=== PATIENT | male | born 1965 | race Caucasian/White ===

== ENCOUNTER 2020-06-07 08:21 | Outpatient (CLI) | payer OTHER, BC, SELFPAY ==
--- NOTE | ~2020-06-07 | US_ITS ---
EXAMINATION: US abdomen complete EXAM DATE: 06/07/2020 09:39 INDICATION: Abnormal blood chemistry. TECHNIQUE: Multiple grayscale and Doppler images of the complete abdomen were obtained (by a technolo gist who performed the scan) and subsequently reviewed. There is no prior study for comparison. FINDINGS: The abdominal aorta is normal in caliber. Visualized portion IVC is patent. The pancreatic head a nd body are normal in appearance. The pancreatic tail is not visualized. There is echogenic liver parenchyma, hepatic steatosis. There are no focal liver lesions identified. There is no evidence of intrahepatic biliary duct dilation. Portal venous flow was seen in the he patopedal, normal direction and has normal Doppler waveform. Common bile duct measures 4 mm, which is normal. The gallbladder wall is normal in thickness, with ex pected amount of distention. No sonographic evidence of pericholecystic fluid. There is no cholelit hiases. Technologist performing exam reports patient did not demonstrate sonographic Gregg's sign. Please note that this sign is less reliable in patients who have received pain medication. Right kidney: There is normal contour and echogenicity. It measures 10.7 x 5.8 x 6.5 centimeters. There are no focal renal lesions identified. There is no hydronephrosis. Left kidney: There is normal contour and echogenicity. It measures 10.1 x 5.2 x 5.4 centimeters. T here are no focal renal lesions identified. There is no hydronephrosis. The spleen measures 10 centimeters and is morphologically normal. IMPRESSION: 1. Hepatic steatosis. Reviewed, dictated and finalized at location A. IMPRESSION: 1. Hepatic steatosis.
== END 2020-06-07 08:22 | disposition home or self-care (01) ==
LOC: ANHIMG 08:23
PROVIDERS: PCP Family Medicine; Visit Provider Physician Assistant Medical
DX: R79.89 Other specified abnormal findings of blood chemistry (principal); K76.0 Fatty (change of) liver, not elsewhere classified
CPT/HCPCS: 76700

== ENCOUNTER → 2021-10-16 01:28 | Outpatient (CLI) | payer BC, SELFPAY ==
[2021-10-17 13:55] LABS: SARS-CoV-2 RNA PCR Negative
== END ==
PROVIDERS: PCP Family Medicine; Visit Provider Physician Assistant Medical
DX: R09.89 Other specified symptoms and signs involving the circulatory and respiratory systems (principal); Z20.822 Contact with and (suspected) exposure to COVID-19
CPT/HCPCS: C9803; U0003; U0005

== ENCOUNTER 2023-03-07 10:02 | Outpatient (CLI) | payer BC, SELFPAY ==
--- NOTE | ~2023-03-07 | XR_ITS ---
AP and lateral views of the right hip Clinical history: Pain Findings: No acute fracture or dislocation is seen. Osseous alignment is anatomic. The right hip join t is preserved. Right SI joint also unremarkable. Soft tissues are unremarkable. Impression: No significant abnormality is seen. Reviewed, dictated and finalized at location . Impression: No significant abnormality is seen.
== END 2023-03-07 10:03 ==
PROVIDERS: PCP Family Medicine; Visit Provider Nurse Practitioner Family
DX: M25.551 Pain in right hip (principal)
CPT/HCPCS: 73502

== ENCOUNTER 2023-04-20 20:00 | Emergency (ER) | payer BC, SELFPAY ==
--- NOTE | ~2023-04-20 | XR_ITS ---
EXAM: XR tibia fibula LT 2V DATE: 04/20/2023 20:44 HISTORY: Calf muscular strain/sprain . COMPARISON: None available. FINDINGS: Normal mineralization. No fracture or dislocation. No lytic or blastic lesion. Mild knee o steoarthritis. Moderate ankle osteoarthritis quadriceps, patellar, Achilles, and plantar enthesopathy . No erosion or periosteal change. Vascular calcifications. The Achilles tendon is grossly intact. IMPRESSION: No acute osseous finding. The Achilles tendon appears to be grossly intact, noting that r adiography is not sensitive for partial tendon tears. Reviewed, dictated and finalized at location K. IMPRESSION: No acute osseous finding. The Achilles tendon appears to be grossly intact, noting that radiography is not sensitive for partial tendon tears.
[2023-04-20 20:12] VITALS: BP 142/84; PULSE 91; RESP 18; TEMP 36.9; O2SAT 99
--- NOTE | 2023-04-20 20:32 | ED.LOWEXIN ---
HPI - Extremity Injury (Lower) General Chief Complaint: Extremity Injury, Lower Stated Complaint: left leg injury Time Seen by Provider: 04/20/23 20:23 Source: patient Mode of arrival: ambulatory Limitations: no limitations History of Present Illness HPI Narrative: 57 years old white male presents with pain at the left calf muscles started immediately while trying to push a truck forward while wearing the boot. Patient felt quivery feeling at the calf muscles then stopped immediately. He denies other injuries. Pain worse with walking, better if he sits or keep his leg elevated. Related Data Allergies Allergy/AdvReac Type Severity Reaction Status Date / Time No Known Allergies Allergy Verified 04/20/23 20:51 Review of Systems Review of Systems: All systems reviewed & are unremarkable except as noted in HPI and below PMFSH Past Medical History Medical History BMI 29.0-29.9,adult BMI 30.0-30.9,adult Exposure to COVID-19 virus Family History Family History Sibling Hypertension Mother Family history of heart disease in male family member before age 55 Father Carcinoma of colon Social History Social History Smoking status: Never smoker Second hand tobacco smoke exposure: Yes Alcohol intake: never Substance use: never Substance use type: does not use Living arrangements: with family Occupation/Education: occupation 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 Gender identity (if verbalized by the patient): Male Exam Narrative: General appearance: Well-developed, well-nourished Skin: Normal color Head: Normocephalic, nontraumatic Chest and respiratory: Airway patent, no respiratory distress, no accessory muscle use Heart: Regular rate/rhythm Vascular: Normal peripheral pulses, normal capillary refill. Musculoskeletal: Mild diffuse tenderness at the left calf muscles, slightly swollen compared to the other leg. Negative Leone test, no tenderness at the Achilles tendon. No bruises Neurologic: Alert and oriented ?3, SODA CLERK is normal as tested, no gross motor deficit Course Reevaluation(s) Reevaluation #1: Feeling much better after ibuprofen and [place] orally. Date: 04/20/23 Time: 21:21 Vital Signs Vital signs: Vital Signs Temperature 36.9 C 04/20/23 20:12 Pulse Rate 91 04/20/23 20:12 Respiratory Rate 18 04/20/23 20:12 Blood Pressure 142/84 H 04/20/23 20:12 Pulse Oximetry 99 04/20/23 20:12 Oxygen Delivery Room Air 04/20/23 20:12 Temperature 36.9 C 04/20/23 20:12 Pulse Rate 91 04/20/23 20:12 Respiratory Rate 18 04/20/23 20:12 Blood Pressure 142/84 H 04/20/23 20:12 Pulse Oximetry 99 04/20/23 20:12 Oxygen Delivery Room Air 04/20/23 20:12 MDM - Extremity Injury (Lower) MDM Narrative Medical decision making narrative: Patient presents with pain at the calf muscle of the left lower leg, muscular strain/sprain is my concern. X-ray ordered to rule out the possibility of avulsion fracture. Leone test is negative, Achilles tendon exam showed no signs of tears. X-ray left tib-fib showed no acute abnormality. Patient will be discharged on crutches, anti-inflammatory medicine and Tylenol. To follow-up with orthopedic as needed. Differential Diagnosis Differential diagnosis: Likely other (Muscular strain/sprain, Achilles tendon injury) Imaging Data Radiologist's impression: Impressions Tibia/Fibula X-Ray 04/20/23 21:08 IMPRESSION: No acute osseous finding. [facility]
[2023-04-20] MEDS: HYDROcodone/acetaminophen (*CRX) 5-325 MG TABLET 1 TAB PO (20:50)
[2023-04-20] MEDS: IBUPROFEN 600 MG TABLET PO (20:51)
== END 2023-04-20 21:27 | disposition home or self-care (01) ==
PROVIDERS: Emergency Provider Emergency Medicine; PCP Family Medicine
DX: S86.912A Strain of unspecified muscle(s) and tendon(s) at lower leg level, left leg, initial encounter (principal); X50.0XXA Overexertion from strenuous movement or load, initial encounter
CPT/HCPCS: 73590; 99283; A9270

== ENCOUNTER 2023-10-15 09:33 | Outpatient (CLI) | payer BC, SELFPAY ==
[2023-10-28 17:29] VITALS: BMI 31.1
--- NOTE | 2023-10-28 17:29 | WPDHOMESLEEP ---
Sleep Study - Home Unattended Date of Study: 10/15/23 Ordering Provider: Hans Raphael MD Interpreting Provider: Annie Pacheco DO Home Sleep Study Type: Watch PAT Height: 1.73 m Weight: 92.986 kg Body Mass Index: 31.1 Neck Circumference (inches): 16.5 [place]: 10 Reason for Sleep Study Daytime hypersomnia Sleep History The patient's sleep intake paperwork was not completed and included in the chart. [facility] Past Medical History Medical History BMI 29.0-29.9,adult BMI 30.0-30.9,adult Bronchitis Cough Elevated ALT measurement Elevated fasting glucose Elevated hemoglobin A1c Exposure to COVID-19 virus Fatigue History of fatty infiltration of liver Screening for diabetes mellitus Screening for hyperlipidemia Snoring Umbilical hernia Vitamin D deficiency Surgical History Surgical History Hx of appendectomy Family History Family History Sibling Hypertension Diabetes mellitus Mother Family history of heart disease in male family member before age 55 Father Carcinoma of colon , Onset Age: 82 covid-19 Social History Social History Smoking status: Never smoker Second hand tobacco smoke exposure: Yes Alcohol intake: never Substance use: never Substance use type: does not use Lack of Transportation: No Lack of Food: Never True Current Housing: I Have Housing Concerned About Future Housing: No Difficulty Paying Gas/Electric Bills: No Difficulty Paying for Meds: No Currently Unemployed: No Education: High School Diploma/GED Difficulty w/ Childcare or Family Care: No Living arrangements: with family Occupation/Education: occupation 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 Gender identity (if verbalized by the patient): Male Medications Home Medications Medication Instructions Recorded Confirmed Type metoprolol succinate 50 mg 50 mg PO DAILY #90 tabs 02/13/23 03/07/23 Rx tablet,extended release 24 hr triamcinolone acetonide 0.1 % 1 applic topical BID #30 grams 03/07/23 03/07/23 Rx topical cream lisinopril 5 mg tablet 5 mg PO DAILY #90 tabs 05/22/23 Rx cholecalciferol (vitamin D3) 125 125 mcg PO DAILY #30 tabs 10/01/23 Rx mcg (5,000 unit) tablet amoxicillin 875 mg-potassium 1 tablet PO BID #20 tabs 10/15/23 Rx clavulanate 125 mg tablet Sleep Procedure The sleep study was completed using WatchPAT a technically adequate device with seven channels: peripheral arterial tone, actigraphy, body position, snore, respiratory movement, pulse oximetry, sleep staging, and heart rate. Prior to using the device, the patient received verbal and written instructions for its application and was provided with the help desk phone number for additional telephonic instruction with 24-hour availability of qualified personnel to answer questions. The study was scored using [facility] guidelines. Sleep Architecture The patient had a total recording time of 7 hours 31 minutes and a total sleep time of 5 hours 55 minutes. The sleep efficiency was 78.72%. The sleep latency was 20 minutes and the REM latency was 164 minutes. The patient had 10 awakenings. The patient spent 71.56% of total sleep time in light sleep, 13.80% of total sleep time in deep sleep and 14.64% of total sleep time in REM sleep. The patient spent 65.5 minutes, 18.4% of total sleep time in the supine position. Respiratory Analysis The patient had an overall AHI of 1.4 and a central apnea index of 0.3. The REM AHI was 2.3. [place] Morales respirations were not seen. Oximetry Data The patient had an average oxygen saturation of 95% with a minimum of 90% and a maximum of 99%. The patient had 9 desaturations that were 4% or greater, resu
== END 2023-10-17 07:30 | disposition home or self-care (01) ==
LOC: ANHCSM 09:51
PROVIDERS: PCP Family Medicine; Visit Provider Family Medicine
DX: G47.10 Hypersomnia, unspecified (principal); R06.83 Snoring
CPT/HCPCS: 95800

== ENCOUNTER → 2023-12-17 09:47 | Outpatient (CLI) | payer BC, SELFPAY ==
--- NOTE | ~2023-12-17 | XR_ITS ---
EXAMINATION: XR chest 2V DATE: 12/17/2023 09:58 INDICATION: Cough. TECHNIQUE: Frontal and lateral views of the chest were obtained on 3 radiographs. COMPARISON: None. FINDINGS: There is no pneumonia, pleural effusion, or pneumothorax. The heart size is normal. IMPRESSION: 1. No acute cardiopulmonary disease. Reviewed, dictated and finalized at location E. [employer]
== END ==
PROVIDERS: PCP Family Medicine; Visit Provider Nurse Practitioner Family
DX: R05.9 Cough, unspecified (principal)
CPT/HCPCS: 71046

== ENCOUNTER 2024-04-06 13:24 | Outpatient (CLI) | payer BC, SELFPAY ==
--- NOTE | ~2024-04-06 | XR_ITS ---
EXAMINATION: XR knee RT 3V DATE: 04/06/2024 13:56 INDICATION: Anterior right knee pain and swelling TECHNIQUE: Standing AP, lateral and sunrise views of the right knee were obtained COMPARISON: None. FINDINGS: Alignment is normal. No fracture. Joint spaces are normal. No joint effusion/layering lipohemarthros is. Prepatellar soft tissue swelling.. IMPRESSION: 1. Prepatellar soft tissue swelling. No joint effusion or osseous abnormality. Reviewed, dictated and finalized at location B.
== END 2024-04-06 13:25 ==
PROVIDERS: PCP Family Medicine; Visit Provider Physician Assistant Medical
DX: M25.561 Pain in right knee (principal); M79.89 Other specified soft tissue disorders
CPT/HCPCS: 73562

== ENCOUNTER 2024-04-21 16:17 | Outpatient (NON) | payer BC, SELFPAY | END 2024-04-21 16:18 | disposition home or self-care (01) | LOC: ANHLAB 16:18 | PROVIDERS: PCP Family Medicine; Visit Provider Nurse Practitioner Family | DX: M25.461 Effusion, right knee (principal) | CPT/HCPCS: 87070; 87075; 87205 ==

== ENCOUNTER 2024-06-08 14:00 | Outpatient (NON) | payer BC, SELFPAY ==
[2024-06-08 15:04] LABS: Color Synovial Fluid Red (Colorless); Source Synovial Fluid Synovial fluid
[2024-06-08 15:05] LABS: Appearance Synovial Fluid Bloody (Clear)
[2024-06-08 15:06] LABS: Lymphocytes Synovial Fluid 2 %; Neutrophils Synovial Fluid 98 % (0-25)
[2024-06-08 15:16] LABS: Crystals Synovial Fluid None Seen (None Seen)
== END 2024-06-08 14:01 | disposition home or self-care (01) ==
PROVIDERS: PCP Family Medicine; Visit Provider Nurse Practitioner Family
DX: M70.41 Prepatellar bursitis, right knee (principal)
CPT/HCPCS: 36415; 87070; 87075; 87205; 89051; 89060

== ENCOUNTER 2024-09-29 07:08 | Outpatient (RCR) | payer BC, SELFPAY ==
--- NOTE | 2024-07-10 09:15 | PM.PNORT ---
Progress Note: A&P Assessment and Plan (1) Prepatellar bursitis, right knee: Code(s): M70.41 - Prepatellar bursitis, right knee Status: Acute Assessment and Plan: Updated history, physical exam reviewed with the patient. Interval changes reviewed. Discussed the condition, nature, etiology and course of natural history with the patient. Treatment options including surgical and nonoperative treatment were reviewed. Risks and benefits of each as well as alternatives reviewed. The patient's questions were answered. Conservative treatment ice, compression and elevation. patient presents to [facility] for evaluation of his right knee ulcer status post prepatellar bursa. Evaluation from wound care team in agreement with dressing changes and application of graft to assist with healing. Follow up in 1 week for re-evaluation and possible Re graft. 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 Risks and benefits of each as well as alternatives were reviewed. All of the patient's questions were answered. The risks of surgery reviewed including but not limited to: Neurovascular damage, wound complication, infection, blood clot, pulmonary embolus, stroke, myocardial infarction, and anesthetic risks up to and including . Continued pain and possible dysfunction were explained. Specific risks of the procedure including later recurrence of deformity. No guarantees were offered. If complications occur, the patient understands the need for further treatment, possible further surgery. Patient verbalizes understanding and wishes to proceed. PLAN: Application synthetic graft right knee Subjective Subjective Date/Time Seen: 07/10/24 09:15 Principal diagnosis: Right knee bursitis Interval history: patient presents to [facility] for right knee bursitis with skin necrosis. He has been doing dressing changes. No noted problems in the interim. Review of Systems Constitutional: Constitutional: Denies fever(s) Eyes: Eyes: Denies blurry vision ENT: Reports Normal hearing present Cardiovascular: Cardiovascular: Denies chest pain and Denies dyspnea Respiratory: Respiratory: Denies dyspnea and Denies wheezing Gastrointestinal: Gastrointestinal: Denies abdominal pain Genitourinary: Genitourinary: Denies urinary urgency Musculoskeletal: Musculoskeletal: Reports as per HPI and Denies numbness Integumentary/Breasts: Skin/Breast: Denies changing lesions and Denies sores Neurologic: Reports Normal hearing present, Denies behavioral changes, Denies confusion, Denies numbness and Denies convulsions Psychiatric: Psychiatric: Denies behavioral changes, Denies confusion and Denies hallucinations Endocrine: Endocrine: Denies heat intolerance Hematologic/Lymphatic: Hematologic/Lymphatic: Denies easy bleeding Allergic/Immunologic: Allergic/Immunologic: Denies wheezing Exam Const: General: healthy appearing; No in distress or confusion Orientation/consciousness: oriented to person, oriented to place, oriented to time and No confusion HENMT: Head: normal to inspection, normocephalic and atraumatic Eyes: Conjunctivae: conjunctivae normal Sclera: sclerae normal Neck: Neck: supple and nontender Resp: Effort & Inspection: normal respiratory effort and no audible wheezes Cardio: Rate: regular rate Rhythm: regular rhythm Skin: General skin exam: no rashes or lesions noted Neuro: General: oriented to person, oriented to place, oriented to time and No confusion Extrem: Right upper extremity: normal to inspection Left upper extremity: normal to inspection Right lower extremity: hip/thigh Details: normal ROM; no tenderness, knee Details: abnormal to inspection Details: other ( Open wound anterior tibial tubercle 3 x 3 cm with 4 mm depth. 80% granulation tissue. Mild surrounding erythema. No drainage.), tenderness (anterior and medial joint line ) Location: of the medial joint line (moderate ) and of the pre-patellar area (moderate ), swelling (peripatellar and medial joint ), abnormal ROM (active range of motion -10 degrees extension, 110 degrees flexion) Details: pain with active ROM during Details: in extension and in flexion, knee ligament exam normal Details: anterior drawer test normal, posterior drawer test normal, valgus stress test normal and Zoë?s test normal, knee ligament exam abnormal Details: varus stress test normal (painful medial ) and Willard's Test Details: positive medially and foot Details: normal capillary refill, toes with normal ROM, vascular exam Details: dorsalis pedis pulse present and motor-sensory exam Details: light-touch normal; no tenderness; no edema Left lower extremity: normal to inspection, normal capillary refill and knee Details: normal ROM (Active extension 5, flexion 130) and knee ligament exam normal; no tenderness Psych: Affect: normal affect Office Procedure General Pre-Procedure Pre-procedure care: Consent was obtained, Procedures/risks were explained, Questions were answered, Correct patient identified and Correct side and site confirmed Procedure Procedure Details: right knee wound sterilized with alcohol prep. Application of synthetic skin graft to right knee. Sterile dressing applied. Post Procedure Patient tolerated the procedure well?: Tolerated procedure well Comments: CPT 76993
[2024-07-10 09:32] VITALS: BMI 33.7
--- NOTE | 2024-07-17 09:34 | PM.IMHP ---
H&P: HPI History of Present Illness Date/Time: 07/17/24 09:34 Chief Complaint: Right Knee Tibial Tubercle Bursitis Wound PMFSH Past Medical History Medical History (Updated 07/10/24 @ 09:19 by Vinicius Macedo MD) BMI 31.0-31.9,adult Bronchitis Cellulitis of right leg Cough Effusion of bursa of right knee Elevated ALT measurement Elevated fasting glucose Elevated hemoglobin A1c Encounter for screening for malignant neoplasm of prostate Exposure to COVID-19 virus Fatigue History of fatty infiltration of liver Prepatellar bursitis, right knee Right otitis media Screening for diabetes mellitus Screening for hyperlipidemia Snoring Ulcer of right knee Umbilical hernia Vitamin D deficiency Surgical History Surgical History Hx of appendectomy Family History Family History Sibling Hypertension Diabetes mellitus Mother Family history of heart disease in male family member before age 55 Father Carcinoma of colon , Onset Age: 82 covid-19 Social History Social History Smoking status: Never smoker Second hand tobacco smoke exposure: Yes Alcohol intake: never Substance use: never Substance use type: does not use Lack of Transportation: No Lack of Food: Never True Current Housing: I Have Housing Concerned About Future Housing: No Difficulty Paying Gas/Electric Bills: No Difficulty Paying for Meds: No Currently Unemployed: No Education: High School Diploma/GED Difficulty w/ Childcare or Family Care: No Living arrangements: with family Occupation/Education: occupation 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 Gender identity (if verbalized by the patient): Male Meds Home Medications and Allergies Home Medications Medication Instructions Recorded Confirmed Type metoprolol succinate 50 mg 50 mg PO DAILY #90 tabs 11/23/23 07/10/24 Rx tablet,extended release 24 hr cetirizine 10 mg capsule (Zyrtec) 10 mg PO DAILY PRN allergies 02/18/24 07/10/24 History cholecalciferol (vitamin D3) 125 125 mcg PO DAILY #30 tabs 06/18/24 07/10/24 Rx mcg (5,000 unit) tablet lisinopril 5 mg tablet 5 mg PO DAILY #90 tabs 06/18/24 07/10/24 Rx chlorhexidine gluconate 4 % 1 applic topical ONCE #236 mL 06/26/24 07/10/24 Rx topical liquid (Hibiclens) Allergies Allergy/AdvReac Type Severity Reaction Status Date / Time No Known Allergies Allergy Verified 07/10/24 09:33
--- NOTE | 2024-07-17 14:39 | PM.PNORT ---
Progress Note: A&P Assessment and Plan (1) Prepatellar bursitis, right knee: Code(s): M70.41 - Prepatellar bursitis, right knee Status: Acute Assessment and Plan: Updated history, physical exam reviewed with the patient. Interval changes reviewed. Discussed the condition, nature, etiology and course of natural history with the patient. Treatment options including surgical and nonoperative treatment were reviewed. Risks and benefits of each as well as alternatives reviewed. The patient's questions were answered. Conservative treatment ice, compression and elevation. patient presents to [facility] for evaluation of his right knee ulcer status post prepatellar bursa. Evaluation from wound care team in agreement with dressing changes and application of graft to assist with healing. Follow up in 1 week for re-evaluation and possible Re graft. 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 Risks and benefits of each as well as alternatives were reviewed. All of the patient's questions were answered. The risks of surgery reviewed including but not limited to: Neurovascular damage, wound complication, infection, blood clot, pulmonary embolus, stroke, myocardial infarction, and anesthetic risks up to and including . Continued pain and possible dysfunction were explained. Specific risks of the procedure including later recurrence of deformity. No guarantees were offered. If complications occur, the patient understands the need for further treatment, possible further surgery. Patient verbalizes understanding and wishes to proceed. PLAN: Application synthetic graft right knee Subjective Subjective Date/Time Seen: 07/17/24 14:39 Principal diagnosis: Right knee bursitis Interval history: Patient follows up in the [facility] for right knee bursitis with skin necrosis. He has been doing dressing changes. No noted problems in the interim. Review of Systems Constitutional: Constitutional: Denies fever(s) Eyes: Eyes: Denies blurry vision ENT: Reports Normal hearing present Cardiovascular: Cardiovascular: Denies chest pain and Denies dyspnea Respiratory: Respiratory: Denies dyspnea and Denies wheezing Gastrointestinal: Gastrointestinal: Denies abdominal pain Genitourinary: Genitourinary: Denies urinary urgency Musculoskeletal: Musculoskeletal: Reports as per HPI and Denies numbness Integumentary/Breasts: Skin/Breast: Denies changing lesions and Denies sores Neurologic: Reports Normal hearing present, Denies behavioral changes, Denies confusion, Denies numbness and Denies convulsions Psychiatric: Psychiatric: Denies behavioral changes, Denies confusion and Denies hallucinations Endocrine: Endocrine: Denies heat intolerance Hematologic/Lymphatic: Hematologic/Lymphatic: Denies easy bleeding Allergic/Immunologic: Allergic/Immunologic: Denies wheezing Exam Const: General: healthy appearing; No in distress or confusion Orientation/consciousness: oriented to person, oriented to place, oriented to time and No confusion HENMT: Head: normal to inspection, normocephalic and atraumatic Eyes: Conjunctivae: conjunctivae normal Sclera: sclerae normal Neck: Neck: supple and nontender Resp: Effort & Inspection: normal respiratory effort and no audible wheezes Cardio: Rate: regular rate Rhythm: regular rhythm Skin: General skin exam: no rashes or lesions noted Neuro: General: oriented to person, oriented to place, oriented to time and No confusion Extrem: Right upper extremity: normal to inspection Left upper extremity: normal to inspection Right lower extremity: hip/thigh Details: normal ROM; no tenderness, knee Details: abnormal to inspection Details: other ( Open wound anterior tibial tubercle 3 x 3 cm with 4 mm depth. 80% granulation tissue. Mild surrounding erythema. No drainage.), tenderness (anterior and medial joint line ) Location: of the medial joint line (moderate ) and of the pre-patellar area (moderate ), swelling (peripatellar and medial joint ), abnormal ROM (active range of motion -10 degrees extension, 110 degrees flexion) Details: pain with active ROM during Details: in extension and in flexion, knee ligament exam normal Details: anterior drawer test normal, posterior drawer test normal, valgus stress test normal and Zoë?s test normal, knee ligament exam abnormal Details: varus stress test normal (painful medial ) and Willard's Test Details: positive medially and foot Details: normal capillary refill, toes with normal ROM, vascular exam Details: dorsalis pedis pulse present and motor-sensory exam Details: light-touch normal; no tenderness; no edema Left lower extremity: normal to inspection, normal capillary refill and knee Details: normal ROM (Active extension 5, flexion 130) and knee ligament exam normal; no tenderness Psych: Affect: normal affect
--- NOTE | 2024-07-24 09:06 | P.HP_ITS ---
H&P: HPI History of Present Illness Date/Time: 07/24/24 09:06 Chief Complaint: Right tibial tubercle bursa wound Narrative: Patient follows up in the [facility] for right knee bursitis with skin necrosis. He has been doing dressing changes. No noted problems in the interim. Review of Systems Constitutional: Constitutional: Denies fever(s) Eyes: Eyes: Denies blurry vision ENT: Reports Normal hearing present Cardiovascular: Cardiovascular: Denies chest pain and Denies dyspnea Respiratory: Respiratory: Denies dyspnea and Denies wheezing Gastrointestinal: Gastrointestinal: Denies abdominal pain Genitourinary: Genitourinary: Denies urinary urgency Musculoskeletal: Musculoskeletal: Reports as per HPI and Denies numbness Integumentary/Breasts: Skin/Breast: Denies changing lesions and Denies sores Neurologic: Reports Normal hearing present, Denies behavioral changes, Denies confusion, Denies numbness and Denies convulsions Psychiatric: Psychiatric: Denies behavioral changes, Denies confusion and Denies hallucinations Endocrine: Endocrine: Denies heat intolerance Hematologic/Lymphatic: Hematologic/Lymphatic: Denies easy bleeding Allergic/Immunologic: Allergic/Immunologic: Denies wheezing PMFSH Past Medical History Medical History (Updated 07/10/24 @ 09:19 by Vinicius Macedo MD) BMI 31.0-31.9,adult Bronchitis Cellulitis of right leg Cough Effusion of bursa of right knee Elevated ALT measurement Elevated fasting glucose Elevated hemoglobin A1c Encounter for screening for malignant neoplasm of prostate Exposure to COVID-19 virus Fatigue History of fatty infiltration of liver Prepatellar bursitis, right knee Right otitis media Screening for diabetes mellitus Screening for hyperlipidemia Snoring Ulcer of right knee Umbilical hernia Vitamin D deficiency Surgical History Surgical History Hx of appendectomy Family History Family History Sibling Hypertension Diabetes mellitus Mother Family history of heart disease in male family member before age 55 Father Carcinoma of colon , Onset Age: 82 covid-19 Social History Social History Smoking status: Never smoker Second hand tobacco smoke exposure: Yes Alcohol intake: never Substance use: never Substance use type: does not use Lack of Transportation: No Lack of Food: Never True Current Housing: I Have Housing Concerned About Future Housing: No Difficulty Paying Gas/Electric Bills: No Difficulty Paying for Meds: No Currently Unemployed: No Education: High School Diploma/GED Difficulty w/ Childcare or Family Care: No Living arrangements: with family Occupation/Education: occupation 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 Gender identity (if verbalized by the patient): Male Meds Home Medications and Allergies Home Medications Medication Instructions Recorded Confirmed Type metoprolol succinate 50 mg 50 mg PO DAILY #90 tabs 11/23/23 07/10/24 Rx tablet,extended release 24 hr cetirizine 10 mg capsule (Zyrtec) 10 mg PO DAILY PRN allergies 02/18/24 07/10/24 History cholecalciferol (vitamin D3) 125 125 mcg PO DAILY #30 tabs 06/18/24 07/10/24 Rx mcg (5,000 unit) tablet lisinopril 5 mg tablet 5 mg PO DAILY #90 tabs 06/18/24 07/10/24 Rx chlorhexidine gluconate 4 % 1 applic topical ONCE #236 mL 06/26/24 07/10/24 Rx topical liquid (Hibiclens) Allergies Allergy/AdvReac Type Severity Reaction Status Date / Time No Known Allergies Allergy Verified 07/10/24 09:33 Exam Const: General: healthy appearing; No in distress or confusion Orientation/consciousness: oriented to person, oriented to place, oriented to time and No confusion HENMT: Head: normal to inspection, normocephalic and atraumatic Eyes: Conjunctivae: conjunctivae normal Sclera: sclerae normal Neck: Neck: supple and nontender Resp: Effort & Inspection: normal respiratory effort and no audible wheezes Cardio: Rate: regular rate Rhythm: regular rhythm Skin: General skin exam: no rashes or lesions noted Neuro: General: oriented to person, oriented to place, oriented to time and No confusion Cranial nerves: Yes Normal hearing present Extrem: Right upper extremity: normal to inspection Left upper extremity: normal to inspection Right lower extremity: hip/thigh Details: normal ROM; no tenderness, knee Details: abnormal to inspection Details: other ( Open wound anterior tibial tubercle 3 x 3 cm with 4 mm depth. 80% granulation tissue. Mild surrounding erythema. No drainage.), tenderness (anterior and medial joint line ) Location: of the medial joint line (moderate ) and of the pre-patellar area (moderate ), swelling (peripatellar and medial joint ), abnormal ROM (active range of motion -10 degrees extension, 110 degrees flexion) Details: pain with active ROM during Details: in extension and in flexion, knee ligament exam normal Details: anterior drawer test normal, posterior drawer test normal, valgus stress test normal and Zoë?s test normal, knee ligament exam abnormal Details: varus stress test normal (painful medial ) and Willard's Test Details: positive medially and foot Details: normal capillary refill, toes with normal ROM, vascular exam Details: dorsalis pedis pulse present and motor-sensory exam Details: light-touch normal; no tenderness; no edema Left lower extremity: normal to inspection, normal capillary refill and knee Details: normal ROM (Active extension 5, flexion 130) and knee ligament exam normal; no tenderness Psych: Affect: normal affect Assessment and Plan Assessment and plan (1) Prepatellar bursitis, right knee: Code(s): M70.41 - Prepatellar bursitis, right knee Status: Acute Assessment and Plan: Updated history, physical exam reviewed with the patient. Interval changes reviewed. Discussed the condition, nature, etiology and course of natural history with the patient. Treatment options including surgical and nonoperative treatment were reviewed. Risks and benefits of each as well as alternatives reviewed. The patient's questions were answered. Conservative treatment ice, compression and elevation. Patient returns to [facility] for evaluation of his right knee ulcer status post prepatellar bursa. Evaluation from wound care team in agreement with dressing changes and application of graft to assist with healing. Follow up in 1 week for re-evaluation and possible Re graft. 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 Risks and benefits of each as well as alternatives were reviewed. All of the patient's questions were answered. The risks of surgery reviewed including but not limited to: Neurovascular damage, wound complication, infection, blood clot, pulmonary embolus, stroke, myocardial infarction, and anesthetic risks up to and including . Continued pain and possible dysfunction were explained. Specific risks of the procedure including later recurrence of deformity. No guarantees were offered. If complications occur, the patient understands the need for further treatment, possible further surgery. Patient verbalizes understanding and wishes to proceed. PLAN: Application synthetic graft right knee
--- NOTE | 2024-07-30 14:17 | PCWOUND ---
WOCN NOTE On 07/17/24 Arai BRO applied graft to right knee wound. 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
--- NOTE | 2024-07-31 10:00 | P.HP_ITS ---
H&P: HPI History of Present Illness Date/Time: 07/31/24 10:00 Chief Complaint: Right tibial tubercle bursa wound Narrative: Follow up [facility] for right knee bursitis with skin necrosis. He has been doing Foam dressing changes daily with the Adaptic in place. No noted problems in the interim. States drainage through the foam at each dressing change. Review of Systems Constitutional: Constitutional: Denies fever(s) Eyes: Eyes: Denies blurry vision ENT: Reports Normal hearing present Cardiovascular: Cardiovascular: Denies chest pain and Denies dyspnea Respiratory: Respiratory: Denies dyspnea and Denies wheezing Gastrointestinal: Gastrointestinal: Denies abdominal pain Genitourinary: Genitourinary: Denies urinary urgency Musculoskeletal: Musculoskeletal: Reports as per HPI and Denies numbness Integumentary/Breasts: Skin/Breast: Denies changing lesions and Denies sores Neurologic: Reports Normal hearing present, Denies behavioral changes, Denies confusion, Denies numbness and Denies convulsions Psychiatric: Psychiatric: Denies behavioral changes, Denies confusion and Denies hallucinations Endocrine: Endocrine: Denies heat intolerance Hematologic/Lymphatic: Hematologic/Lymphatic: Denies easy bleeding Allergic/Immunologic: Allergic/Immunologic: Denies wheezing PMFSH Past Medical History Medical History (Updated 07/10/24 @ 09:19 by Vinicius Macedo MD) BMI 31.0-31.9,adult Bronchitis Cellulitis of right leg Cough Effusion of bursa of right knee Elevated ALT measurement Elevated fasting glucose Elevated hemoglobin A1c Encounter for screening for malignant neoplasm of prostate Exposure to COVID-19 virus Fatigue History of fatty infiltration of liver Prepatellar bursitis, right knee Right otitis media Screening for diabetes mellitus Screening for hyperlipidemia Snoring Ulcer of right knee Umbilical hernia Vitamin D deficiency Surgical History Surgical History Hx of appendectomy Family History Family History Sibling Hypertension Diabetes mellitus Mother Family history of heart disease in male family member before age 55 Father Carcinoma of colon , Onset Age: 82 covid-19 Social History Social History Smoking status: Never smoker Second hand tobacco smoke exposure: Yes Alcohol intake: never Substance use: never Substance use type: does not use Lack of Transportation: No Lack of Food: Never True Current Housing: I Have Housing Concerned About Future Housing: No Difficulty Paying Gas/Electric Bills: No Difficulty Paying for Meds: No Currently Unemployed: No Education: High School Diploma/GED Difficulty w/ Childcare or Family Care: No Living arrangements: with family Occupation/Education: occupation 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 Gender identity (if verbalized by the patient): Male Meds Home Medications and Allergies Home Medications Medication Instructions Recorded Confirmed Type metoprolol succinate 50 mg 50 mg PO DAILY #90 tabs 11/23/23 07/10/24 Rx tablet,extended release 24 hr cetirizine 10 mg capsule (Zyrtec) 10 mg PO DAILY PRN allergies 02/18/24 07/10/24 History cholecalciferol (vitamin D3) 125 125 mcg PO DAILY #30 tabs 06/18/24 07/10/24 Rx mcg (5,000 unit) tablet lisinopril 5 mg tablet 5 mg PO DAILY #90 tabs 06/18/24 07/10/24 Rx chlorhexidine gluconate 4 % 1 applic topical ONCE #236 mL 06/26/24 07/10/24 Rx topical liquid (Hibiclens) Allergies Allergy/AdvReac Type Severity Reaction Status Date / Time No Known Allergies Allergy Verified 07/10/24 09:33 Exam Const: General: healthy appearing; No in distress or confusion Orientation/consciousness: oriented to person, oriented to place, oriented to time and No confusion HENMT: Head: normal to inspection, normocephalic and atraumatic Resp: Effort & Inspection: normal respiratory effort and no audible wheezes Cardio: Rate: regular rate Rhythm: regular rhythm Extrem: Right upper extremity: normal to inspection Left upper extremity: normal to inspection Right lower extremity: hip/thigh Details: normal ROM; no tenderness, knee Details: abnormal to inspection, tenderness (anterior and medial joint line ) Location: of the medial joint line (moderate ) and of the pre-patellar area (moderate ), swelling (peripatellar and medial joint ), abnormal ROM (active range of motion -10 degrees extension, 110 degrees flexion) Details: pain with active ROM during Details: in extension and in flexion, knee ligament exam normal Details: anterior drawer test normal, posterior drawer test normal, valgus stress test normal and Zoë?s test normal, knee ligament exam abnormal Details: varus stress test normal (painful medial ), Willard's Test Details: positive medially and other (Open wound anterior tibial tubercle 3.5 x 3 cm with 4 mm depth. 2 cm undermining at the 12 o'clock position. 95% granulation tissue. Mild surrounding erythema. serous drainage noted. 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 Interval changes reviewed. Discussed the condition, nature, etiology and course of natural history with the patient. Treatment options were reviewed. Risks and benefits of each as well as alternatives reviewed. The patient's questions were answered. Patient returns to [facility] for evaluation of his right knee ulcer status post prepatellar bursa. Evaluation from wound care team as well. Discussed standard of care for wound. Mild increase in serous drainage noted. Mild surrounding erythema. Concern for possible bacterial overgrowth. Will start with gentamicin gel and antibiotic foam to decrease bacterial burden. Also to help control drainage. 1 week holiday from grafting. Follow up in 1 week for reassessment. May consider repeat graft at that time. (3) Effusion of bursa of right knee: Code(s): M25.461 - Effusion, right knee Status: Acute
--- NOTE | 2024-07-31 10:27 | P.PNOP_ITS ---
Subjective Subjective Date/Time Seen: 07/31/24 10:27 Principal diagnosis: Right knee bursitis Interval history: Patient follows up in the [facility] for right knee bursitis with skin necrosis. He has been doing dressing changes. No noted problems in the interim. Objective Data Meds/Results Medications: Active Medications Generic Name Dose Route Start Last Admin Trade Name Freq PRN Reason Stop Dose Admin Gentamicin Sulfate 1 applic 07/31/24 09:31 Gentamicin Sulfate 0.1% Oint 15 Gm Tube TOPICAL 10/31/24 23:59 PRN PRN Wound Care
--- NOTE | 2024-07-31 10:28 | PM.IMHP ---
H&P: HPI History of Present Illness Date/Time: 07/31/24 10:28 [facility] Past Medical History Medical History (Updated 07/10/24 @ 09:19 by Vinicius Macedo MD) BMI 31.0-31.9,adult Bronchitis Cellulitis of right leg Cough Effusion of bursa of right knee Elevated ALT measurement Elevated fasting glucose Elevated hemoglobin A1c Encounter for screening for malignant neoplasm of prostate Exposure to COVID-19 virus Fatigue History of fatty infiltration of liver Prepatellar bursitis, right knee Right otitis media Screening for diabetes mellitus Screening for hyperlipidemia Snoring Ulcer of right knee Umbilical hernia Vitamin D deficiency Surgical History Surgical History Hx of appendectomy Family History Family History Sibling Hypertension Diabetes mellitus Mother Family history of heart disease in male family member before age 55 Father Carcinoma of colon , Onset Age: 82 covid-19 Social History Social History Smoking status: Never smoker Second hand tobacco smoke exposure: Yes Alcohol intake: never Substance use: never Substance use type: does not use Lack of Transportation: No Lack of Food: Never True Current Housing: I Have Housing Concerned About Future Housing: No Difficulty Paying Gas/Electric Bills: No Difficulty Paying for Meds: No Currently Unemployed: No Education: High School Diploma/GED Difficulty w/ Childcare or Family Care: No Living arrangements: with family Occupation/Education: occupation 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 Gender identity (if verbalized by the patient): Male Meds Home Medications and Allergies Home Medications Medication Instructions Recorded Confirmed Type metoprolol succinate 50 mg 50 mg PO DAILY #90 tabs 11/23/23 07/10/24 Rx tablet,extended release 24 hr cetirizine 10 mg capsule (Zyrtec) 10 mg PO DAILY PRN allergies 02/18/24 07/10/24 History cholecalciferol (vitamin D3) 125 125 mcg PO DAILY #30 tabs 06/18/24 07/10/24 Rx mcg (5,000 unit) tablet lisinopril 5 mg tablet 5 mg PO DAILY #90 tabs 06/18/24 07/10/24 Rx chlorhexidine gluconate 4 % 1 applic topical ONCE #236 mL 06/26/24 07/10/24 Rx topical liquid (Hibiclens) Allergies Allergy/AdvReac Type Severity Reaction Status Date / Time No Known Allergies Allergy Verified 07/10/24 09:33
--- NOTE | 2024-08-07 09:56 | P.PNOP_ITS ---
Progress Note: A&P Assessment and Plan (1) Prepatellar bursitis, right knee: Code(s): M70.41 - Prepatellar bursitis, right knee Status: Acute Assessment and Plan: patient presents to [facility] for evaluation of his right knee ulcer status post prepatellar bursitis. overall improved with gentamicin ointment and sponge packing with transfer for the wound. Dimensions improved and overall appearance improved. Continue with current wound care. Continue offloading with no direct pressure. Continue daily wash. Follow-up in 1 week for reassessment. 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 Continue with same. Discussed surgical options if worsening or signs of infection. Subjective Subjective Date/Time Seen: 08/07/24 09:56 Principal diagnosis: Right pretibial bursitis Interval history: Patient follows up in the [facility] outpatient [facility] for right knee bursitis with skin necrosis. we held off from grafting at the last visit 1 week ago and started with gentamicin ointment, sponge packing and transfer. No noted problems in the interim. Review of Systems Constitutional: Constitutional: Denies fever(s) Eyes: Eyes: Denies blurry vision ENT: Reports Normal hearing present Cardiovascular: Cardiovascular: Denies chest pain and Denies dyspnea Respiratory: Respiratory: Denies dyspnea and Denies wheezing Gastrointestinal: Gastrointestinal: Denies abdominal pain Genitourinary: Genitourinary: Denies urinary urgency Musculoskeletal: Musculoskeletal: Reports as per HPI and Denies numbness Integumentary/Breasts: Skin/Breast: Denies changing lesions and Denies sores Neurologic: Reports Normal hearing present, Denies behavioral changes, Denies confusion, Denies numbness and Denies convulsions Psychiatric: Psychiatric: Denies behavioral changes, Denies confusion and Denies hallucinations Endocrine: Endocrine: Denies heat intolerance Hematologic/Lymphatic: Hematologic/Lymphatic: Denies easy bleeding Allergic/Immunologic: Allergic/Immunologic: Denies wheezing Exam Const: General: healthy appearing; No in distress or confusion Orientation/consciousness: oriented to person, oriented to place, oriented to time and No confusion HENMT: Head: normal to inspection, normocephalic and atraumatic Resp: Effort & Inspection: normal respiratory effort and no audible wheezes Cardio: Rate: regular rate Rhythm: regular rhythm Extrem: Right upper extremity: normal to inspection Left upper extremity: normal to inspection Right lower extremity: hip/thigh Details: normal ROM; no tenderness, knee Details: abnormal to inspection, tenderness (anterior and medial joint line ) Location: of the medial joint line (moderate ) and of the pre-patellar area (moderate ), swelling (peripatellar and medial joint ), abnormal ROM (active range of motion -10 degrees extension, 110 degrees flexion) Details: pain with active ROM during Details: in extension and in flexion, knee ligament exam normal Details: anterior drawer test normal, posterior drawer test normal, valgus stress test normal and Zoë?s test normal, knee ligament exam abnormal Details: varus stress test normal (painful medial ), Willard's Test Details: positive medially and other (Open wound anterior tibial tubercle 3 x 3 cm with 4 mm depth. 1 cm undermining at the 12 o'clock position. 95% granulation tissue. No surrounding erythema. Mild serous drainage noted. ) and foot Details: normal capillary refill, toes with normal ROM, vascular exam Details: dorsalis pedis pulse present and motor-sensory exam Details: light- touch normal; no tenderness; no edema Left lower extremity: normal to inspection, normal capillary refill and knee Details: normal ROM (Active extension 5, flexion 130) and knee ligament exam normal; no tenderness Psych: Affect: normal affect Objective Data Meds/Results Medications: Active Medications Generic Name Dose Route Start Last Admin Trade Name Freq PRN Reason Stop Dose Admin Gentamicin Sulfate 1 applic 07/31/24 09:31 Gentamicin Sulfate 0.1% Oint 15 Gm Tube TOPICAL 10/31/24 23:59 PRN PRN Wound Care [facility] Date/Time Seen 08/07/24 07:57 Medical History Medical History BMI 31.0-31.9,adult Bronchitis Cellulitis of right leg Cough Effusion of bursa of right knee Elevated ALT measurement Elevated fasting glucose Elevated hemoglobin A1c Encounter for screening for malignant neoplasm of prostate Exposure to COVID-19 virus Fatigue History of fatty infiltration of liver Prepatellar bursitis, right knee Right otitis media Screening for diabetes mellitus Screening for hyperlipidemia Snoring Ulcer of right knee Umbilical hernia Vitamin D deficiency Surgical History Surgical History Hx of appendectomy Family History Family History Sibling Hypertension Diabetes mellitus Mother Family history of heart disease in male family member before age 55 Father Carcinoma of colon , Onset Age: 82 covid-19 Social History Social History Smoking status: Never smoker Second hand tobacco smoke exposure: Yes Alcohol intake: never Substance use: never Substance use type: does not use Lack of Transportation: No Lack of Food: Never True Current Housing: I Have Housing Concerned About Future Housing: No Difficulty Paying Gas/Electric Bills: No Difficulty Paying for Meds: No Currently Unemployed: No Education: High School Diploma/GED Difficulty w/ Childcare or Family Care: No Living arrangements: with family Occupation/Education: occupation 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 Gender identity (if verbalized by the patient): Male Medications Active Medications Generic Name Dose Route Start Last Admin Trade Name Freq PRN Reason Stop Dose Admin Gentamicin Sulfate 1 applic 07/31/24 09:31 Gentamicin Sulfate 0.1% Oint 15 Gm Tube TOPICAL 10/31/24 23:59 PRN PRN Wound Care Allergies Allergies Allergy/AdvReac Type Severity Reaction Status Date / Time No Known Allergies Allergy Verified 07/10/24 09:33
--- NOTE | 2024-08-14 09:23 | P.PNOP_ITS ---
Progress Note: A&P Assessment and Plan (1) Prepatellar bursitis, right knee: Code(s): M70.41 - Prepatellar bursitis, right knee Status: Acute Assessment and Plan: Patient presents to [facility] for evaluation of his right knee ulcer status post prepatellar bursitis. Overall improved with gentamicin ointment and sponge packing with transfer for the wound. May benefit from [employer] grafting. Will authorize. Dimensions improved and overall appearance improved. Continue with current wound care. Continue offloading with no direct pressure. Continue daily wash. Follow-up in 1 week for reassessment. 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 Continue with same. Discussed surgical options if worsening or signs of infection. Subjective Subjective Date/Time Seen: 08/14/24 09:23 Principal diagnosis: Right pretibial bursitis Interval history: Patient follows up in the [facility] outpatient [facility] for right knee bursitis with skin necrosis. We held off from grafting at the last visit 2 weeks ago and started with gentamicin ointment, sponge packing and transfer. No noted problems in the interim. Review of Systems Constitutional: Constitutional: Denies fever(s) Eyes: Eyes: Denies blurry vision ENT: Reports Normal hearing present Cardiovascular: Cardiovascular: Denies chest pain and Denies dyspnea Respiratory: Respiratory: Denies dyspnea and Denies wheezing Gastrointestinal: Gastrointestinal: Denies abdominal pain Genitourinary: Genitourinary: Denies urinary urgency Musculoskeletal: Musculoskeletal: Reports as per HPI and Denies numbness Integumentary/Breasts: Skin/Breast: Denies changing lesions and Denies sores Neurologic: Reports Normal hearing present, Denies behavioral changes, Denies confusion, Denies numbness and Denies convulsions Psychiatric: Psychiatric: Denies behavioral changes, Denies confusion and Denies hallucinations Endocrine: Endocrine: Denies heat intolerance Hematologic/Lymphatic: Hematologic/Lymphatic: Denies easy bleeding Allergic/Immunologic: Allergic/Immunologic: Denies wheezing Exam Const: General: healthy appearing; No in distress or confusion Orientation/consciousness: oriented to person, oriented to place, oriented to time and No confusion HENMT: Head: normal to inspection, normocephalic and atraumatic Resp: Effort & Inspection: normal respiratory effort and no audible wheezes Cardio: Rate: regular rate Rhythm: regular rhythm Extrem: Right upper extremity: normal to inspection Left upper extremity: normal to inspection Right lower extremity: hip/thigh Details: normal ROM; no tenderness, knee Details: abnormal to inspection, tenderness (anterior and medial joint line ) Location: of the medial joint line (moderate ) and of the pre-patellar area (moderate ), swelling (peripatellar and medial joint ), abnormal ROM (active range of motion -10 degrees extension, 110 degrees flexion) Details: pain with active ROM during Details: in extension and in flexion, knee ligament exam normal Details: anterior drawer test normal, posterior drawer test normal, valgus stress test normal and Zoë?s test normal, knee ligament exam abnormal Details: varus stress test normal (painful medial ), Willard's Test Details: positive medially and other (Open wound anterior tibial tubercle3.3x2.2x0.3 cm. 0.4 cm undermining at the 12 o'clock position. 100% granulation tissue. No surrounding erythema. Mild serous drainage noted. ) and foot Details: normal capillary refill, toes with normal ROM, vascular exam Details: dorsalis pedis pulse present and motor-sensory exam Details: light- touch normal; no tenderness; no edema Left lower extremity: normal to inspection, normal capillary refill and knee Details: normal ROM (Active extension 5, flexion 130) and knee ligament exam normal; no tenderness Psych: Affect: normal affect Objective Data Meds/Results Medications: Active Medications Generic Name Dose Route Start Last Admin Trade Name Freq PRN Reason Stop Dose Admin Gentamicin Sulfate 1 applic 07/31/24 09:31 Gentamicin Sulfate 0.1% Oint 15 Gm Tube TOPICAL 10/31/24 23:59 PRN PRN Wound Care
--- NOTE | 2024-08-21 09:01 | PM.IMHP ---
H&P: HPI History of Present Illness Date/Time: 08/21/24 08:31 Chief Complaint: Right tibial tubercle bursa wound Narrative: Follow up [facility] for right knee bursitis with skin necrosis. He has been doing Foam dressing changes daily with transfer and antibiotic ointment. No noted problems in the interim. States drainage through the foam at each dressing change improving. Review of Systems Constitutional: Constitutional: Denies fever(s) Eyes: Eyes: Denies blurry vision ENT: Reports Normal hearing present Cardiovascular: Cardiovascular: Denies chest pain and Denies dyspnea Respiratory: Respiratory: Denies dyspnea and Denies wheezing Gastrointestinal: Gastrointestinal: Denies abdominal pain Genitourinary: Genitourinary: Denies urinary urgency Musculoskeletal: Musculoskeletal: Reports as per HPI and Denies numbness Integumentary/Breasts: Skin/Breast: Denies changing lesions and Denies sores Neurologic: Reports Normal hearing present, Denies behavioral changes, Denies confusion, Denies numbness and Denies convulsions Psychiatric: Psychiatric: Denies behavioral changes, Denies confusion and Denies hallucinations Endocrine: Endocrine: Denies heat intolerance Hematologic/Lymphatic: Hematologic/Lymphatic: Denies easy bleeding Allergic/Immunologic: Allergic/Immunologic: Denies wheezing PMFSH Past Medical History Medical History BMI 31.0-31.9,adult Bronchitis Cellulitis of right leg Cough Effusion of bursa of right knee Elevated ALT measurement Elevated fasting glucose Elevated hemoglobin A1c Encounter for screening for malignant neoplasm of prostate Exposure to COVID-19 virus Fatigue History of fatty infiltration of liver Prepatellar bursitis, right knee Right otitis media Screening for diabetes mellitus Screening for hyperlipidemia Snoring Ulcer of right knee Umbilical hernia Vitamin D deficiency Surgical History Surgical History Hx of appendectomy Family History Family History Sibling Hypertension Diabetes mellitus Mother Family history of heart disease in male family member before age 55 Father Carcinoma of colon , Onset Age: 82 covid-19 Social History Social History Smoking status: Never smoker Second hand tobacco smoke exposure: Yes Alcohol intake: never Substance use: never Substance use type: does not use Lack of Transportation: No Lack of Food: Never True Current Housing: I Have Housing Concerned About Future Housing: No Difficulty Paying Gas/Electric Bills: No Difficulty Paying for Meds: No Currently Unemployed: No Education: High School Diploma/GED Difficulty w/ Childcare or Family Care: No Living arrangements: with family Occupation/Education: occupation 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 Gender identity (if verbalized by the patient): Male Meds Home Medications and Allergies Home Medications Medication Instructions Recorded Confirmed Type metoprolol succinate 50 mg 50 mg PO DAILY #90 tabs 11/23/23 07/10/24 Rx tablet,extended release 24 hr cetirizine 10 mg capsule (Zyrtec) 10 mg PO DAILY PRN allergies 02/18/24 07/10/24 History cholecalciferol (vitamin D3) 125 125 mcg PO DAILY #30 tabs 06/18/24 07/10/24 Rx mcg (5,000 unit) tablet lisinopril 5 mg tablet 5 mg PO DAILY #90 tabs 06/18/24 07/10/24 Rx chlorhexidine gluconate 4 % 1 applic topical ONCE #236 mL 06/26/24 07/10/24 Rx topical liquid (Hibiclens) Allergies Allergy/AdvReac Type Severity Reaction Status Date / Time No Known Allergies Allergy Verified 07/10/24 09:33 Exam Const: General: healthy appearing; No in distress or confusion Orientation/consciousness: oriented to person, oriented to place, oriented to time and No confusion Resp: Effort & Inspection: normal respiratory effort and no audible wheezes Cardio: Rate: regular rate Rhythm: regular rhythm Extrem: Right upper extremity: normal to inspection Left upper extremity: normal to inspection Right lower extremity: hip/thigh Details: normal ROM; no tenderness, knee Details: abnormal to inspection, tenderness (anterior and medial joint line ) Location: of the medial joint line (moderate ) and of the pre-patellar area (moderate ), swelling (peripatellar and medial joint ), abnormal ROM (active range of motion -10 degrees extension, 110 degrees flexion) Details: pain with active ROM during Details: in extension and in flexion, knee ligament exam normal Details: anterior drawer test normal, posterior drawer test normal, valgus stress test normal and Zoë?s test normal, knee ligament exam abnormal Details: varus stress test normal (painful medial ), Willard's Test Details: positive medially and other (Open wound anterior tibial [id number] x0.4 cm. 1.2 cm undermining at the 1 o'clock position. 100% granulation tissue. No surrounding erythema. Mild serous drainage noted. 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 Updated history, physical exam reviewed with the patient. Interval changes reviewed. wound improving with current dressing and treatment regimen. Evaluated with the wound clinic team. Insurance not approved for graft application. Continue with current care with gentamicin ointment, anti microbial foam, transfer with gauze over. Will add Alfreda to try and increase granulation. Overall swelling of the anterior knee improved. No other signs of infection. Follow up in 1 week for reassessment. (3) Effusion of bursa of right knee: Code(s): M25.461 - Effusion, right knee Status: Acute
--- NOTE | 2024-08-28 09:07 | PM.IMHP ---
H&P: HPI History of Present Illness Date/Time: 08/28/24 09:07 Chief Complaint: Right tibial tubercle bursa wound Narrative: Follow up [facility] for right knee bursitis with skin necrosis. He has been doing Foam dressing changes daily with transfer and antibiotic ointment. No noted problems in the interim. States drainage through the foam at each dressing change improving. Review of Systems Constitutional: Constitutional: Denies fever(s) Eyes: Eyes: Denies blurry vision ENT: Reports Normal hearing present Cardiovascular: Cardiovascular: Denies chest pain and Denies dyspnea Respiratory: Respiratory: Denies dyspnea and Denies wheezing Gastrointestinal: Gastrointestinal: Denies abdominal pain Genitourinary: Genitourinary: Denies urinary urgency Musculoskeletal: Musculoskeletal: Reports as per HPI and Denies numbness Integumentary/Breasts: Skin/Breast: Denies changing lesions and Denies sores Neurologic: Reports Normal hearing present, Denies behavioral changes, Denies confusion, Denies numbness and Denies convulsions Psychiatric: Psychiatric: Denies behavioral changes, Denies confusion and Denies hallucinations Endocrine: Endocrine: Denies heat intolerance Hematologic/Lymphatic: Hematologic/Lymphatic: Denies easy bleeding Allergic/Immunologic: Allergic/Immunologic: Denies wheezing PMFSH Past Medical History Medical History BMI 31.0-31.9,adult Bronchitis Cellulitis of right leg Cough Effusion of bursa of right knee Elevated ALT measurement Elevated fasting glucose Elevated hemoglobin A1c Encounter for screening for malignant neoplasm of prostate Exposure to COVID-19 virus Fatigue History of fatty infiltration of liver Prepatellar bursitis, right knee Right otitis media Screening for diabetes mellitus Screening for hyperlipidemia Snoring Ulcer of right knee Umbilical hernia Vitamin D deficiency Surgical History Surgical History Hx of appendectomy Family History Family History Sibling Hypertension Diabetes mellitus Mother Family history of heart disease in male family member before age 55 Father Carcinoma of colon , Onset Age: 82 covid-19 Social History Social History Smoking status: Never smoker Second hand tobacco smoke exposure: Yes Alcohol intake: never Substance use: never Substance use type: does not use Lack of Transportation: No Lack of Food: Never True Current Housing: I Have Housing Concerned About Future Housing: No Difficulty Paying Gas/Electric Bills: No Difficulty Paying for Meds: No Currently Unemployed: No Education: High School Diploma/GED Difficulty w/ Childcare or Family Care: No Living arrangements: with family Occupation/Education: occupation 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 Gender identity (if verbalized by the patient): Male Meds Home Medications and Allergies Home Medications Medication Instructions Recorded Confirmed Type metoprolol succinate 50 mg 50 mg PO DAILY #90 tabs 11/23/23 07/10/24 Rx tablet,extended release 24 hr cetirizine 10 mg capsule (Zyrtec) 10 mg PO DAILY PRN allergies 02/18/24 07/10/24 History cholecalciferol (vitamin D3) 125 125 mcg PO DAILY #30 tabs 06/18/24 07/10/24 Rx mcg (5,000 unit) tablet lisinopril 5 mg tablet 5 mg PO DAILY #90 tabs 06/18/24 07/10/24 Rx chlorhexidine gluconate 4 % 1 applic topical ONCE #236 mL 06/26/24 07/10/24 Rx topical liquid (Hibiclens) Allergies Allergy/AdvReac Type Severity Reaction Status Date / Time No Known Allergies Allergy Verified 07/10/24 09:33 Exam Const: General: healthy appearing; No in distress or confusion Orientation/consciousness: oriented to person, oriented to place, oriented to time and No confusion Resp: Effort & Inspection: normal respiratory effort and no audible wheezes Cardio: Rate: regular rate Rhythm: regular rhythm Extrem: Right upper extremity: normal to inspection Left upper extremity: normal to inspection Right lower extremity: hip/thigh Details: normal ROM; no tenderness, knee Details: abnormal to inspection, tenderness (anterior and medial joint line ) Location: of the medial joint line (moderate ) and of the pre-patellar area (moderate ), swelling (peripatellar and medial joint ), abnormal ROM (active range of motion -10 degrees extension, 110 degrees flexion) Details: pain with active ROM during Details: in extension and in flexion, knee ligament exam normal Details: anterior drawer test normal, posterior drawer test normal, valgus stress test normal and Zoë?s test normal, knee ligament exam abnormal Details: varus stress test normal (painful medial ), Willard's Test Details: positive medially and other (Open wound anterior tibial tubercle 2.5x2.0x0.3 cm undermining at the 1 o'clock position to 0.2 cm. 100% granulation tissue. No surrounding erythema. Mild serous drainage noted. ) and foot Details: normal capillary refill, toes with normal ROM, vascular exam Details: dorsalis pedis pulse present and motor-sensory exam Details: light-touch normal; no tenderness; no edema Left lower extremity: normal to inspection, normal capillary refill and knee Details: normal ROM (Active extension 5, flexion 130) and knee ligament exam normal; no tenderness Assessment and Plan Assessment and plan (1) Prepatellar bursitis, right knee: Code(s): M70.41 - Prepatellar bursitis, right knee Status: Acute Assessment and Plan: Patient returns to [facility] for evaluation of his right knee ulcer status post prepatellar bursa. Updated history, physical exam reviewed with the patient. Interval changes reviewed. wound improving with current dressing and treatment regimen. Evaluated with the wound clinic team. Insurance not approved for graft application. Continue with current care with gentamicin ointment, anti microbial foam, transfer with gauze over. Continue Alfreda for granulation. Overall swelling of the anterior knee improved. No other signs of infection. Follow up in 3 weeks for reassessment. Continue weekly wound checks with [facility] wound care nurses. 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
--- NOTE | 2024-09-18 08:40 | P.HP_ITS ---
H&P: HPI History of Present Illness Date/Time: 09/18/24 08:40 Chief Complaint: Right tibial tubercle bursa wound Narrative: Follow up [facility] for right knee bursitis with skin necrosis. He has been doing Foam dressing changes daily with transfer and antibiotic ointment. No noted problems in the interim. States drainage through the foam at each dressing change improving. Was more active last week. Increased drainage noted. Review of Systems Constitutional: Constitutional: Denies fever(s) Eyes: Eyes: Denies blurry vision ENT: Reports Normal hearing present Cardiovascular: Cardiovascular: Denies chest pain and Denies dyspnea Respiratory: Respiratory: Denies dyspnea and Denies wheezing Gastrointestinal: Gastrointestinal: Denies abdominal pain Genitourinary: Genitourinary: Denies urinary urgency Musculoskeletal: Musculoskeletal: Reports as per HPI and Denies numbness Integumentary/Breasts: Skin/Breast: Denies changing lesions and Denies sores Neurologic: Reports Normal hearing present, Denies behavioral changes, Denies confusion, Denies numbness and Denies convulsions Psychiatric: Psychiatric: Denies behavioral changes, Denies confusion and Denies hallucinations Endocrine: Endocrine: Denies heat intolerance Hematologic/Lymphatic: Hematologic/Lymphatic: Denies easy bleeding Allergic/Immunologic: Allergic/Immunologic: Denies wheezing PMFSH Past Medical History Medical History BMI 31.0-31.9,adult Bronchitis Cellulitis of right leg Cough Effusion of bursa of right knee Elevated ALT measurement Elevated fasting glucose Elevated hemoglobin A1c Encounter for screening for malignant neoplasm of prostate Exposure to COVID-19 virus Fatigue History of fatty infiltration of liver Prepatellar bursitis, right knee Right otitis media Screening for diabetes mellitus Screening for hyperlipidemia Snoring Ulcer of right knee Umbilical hernia Vitamin D deficiency Surgical History Surgical History Hx of appendectomy Family History Family History Sibling Hypertension Diabetes mellitus Mother Family history of heart disease in male family member before age 55 Father Carcinoma of colon , Onset Age: 82 covid-19 Social History Social History Smoking status: Never smoker Second hand tobacco smoke exposure: Yes Alcohol intake: never Substance use: never Substance use type: does not use Lack of Transportation: No Lack of Food: Never True Current Housing: I Have Housing Concerned About Future Housing: No Difficulty Paying Gas/Electric Bills: No Difficulty Paying for Meds: No Currently Unemployed: No Education: High School Diploma/GED Difficulty w/ Childcare or Family Care: No Living arrangements: with family Occupation/Education: occupation 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 Gender identity (if verbalized by the patient): Male Meds Home Medications and Allergies Home Medications Medication Instructions Recorded Confirmed Type metoprolol succinate 50 mg 50 mg PO DAILY #90 tabs 11/23/23 07/10/24 Rx tablet,extended release 24 hr cetirizine 10 mg capsule (Zyrtec) 10 mg PO DAILY PRN allergies 02/18/24 07/10/24 History cholecalciferol (vitamin D3) 125 125 mcg PO DAILY #30 tabs 06/18/24 07/10/24 Rx mcg (5,000 unit) tablet lisinopril 5 mg tablet 5 mg PO DAILY #90 tabs 06/18/24 07/10/24 Rx chlorhexidine gluconate 4 % 1 applic topical ONCE #236 mL 06/26/24 07/10/24 Rx topical liquid (Hibiclens) Allergies Allergy/AdvReac Type Severity Reaction Status Date / Time No Known Allergies Allergy Verified 07/10/24 09:33 Exam Const: General: healthy appearing; No in distress or confusion Orie ntation/consciousness: oriented to person, oriented to place, oriented to time and No confusion Resp: Effort & Inspection: normal respiratory effort and no audible wheezes Cardio: Rate: regular rate Rhythm: regular rhythm Extrem: Right upper extremity: normal to inspection Left upper extremity: normal to inspection Right lower extremity: hip/thigh Details: normal ROM; no tenderness, knee Details: abnormal to inspection, tenderness (anterior and medial joint line ) Location: of the medial joint line (moderate ) and of the pre-patellar area (moderate ), swelling (peripatellar and medial joint ), abnormal ROM (active range of motion -10 degrees extension, 110 degrees flexion) Details: pain with active ROM during Details: in extension and in flexion, knee ligament exam normal Details: anterior drawer test normal, posterior drawer test normal, valgus stress test normal and Zoë?s test normal, knee ligament exam abnormal Details: varus stress test normal (painful medial ), Willard's Test Details: positive medially and other (Open wound anterior tibial tubercle 2.4x1.7x0.3 cm undermining at the 11 o'clock position to 1.5 cm. 95% granulation tissue. No surrounding erythema. Mild serous drainage noted. ) and foot Details: normal capillary refill, toes with normal ROM, vascular exam Details: dorsalis pedis pulse present and motor-sensory exam Details: light- touch normal; no tenderness; no edema Left lower extremity: normal to inspection, normal capillary refill and knee Details: normal ROM (Active extension 5, flexion 130) and knee ligament exam normal; no tenderness Assessment and Plan Assessment and plan (1) Prepatellar bursitis, right knee: Code(s): M70.41 - Prepatellar bursitis, right knee Status: Acute Assessment and Plan: Patient returns to [facility] for evaluation of his right knee ulcer status post prepatellar bursa. Updated history, physical exam reviewed with the patient. Interval changes reviewed. wound stalled in dimensions. Mild serous drainage. Evaluated with the wound clinic team. Insurance not approved for graft application. Wound VAC to assist with granulation and closure, control drainage. Overall swelling of the anterior knee improved. No other signs of infection. Follow up in 5days for reassessment With wound VAC. 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
--- NOTE | 2024-09-29 08:49 | P.HP_ITS ---
H&P: HPI History of Present Illness Date/Time: 09/29/24 08:49 Chief Complaint: Right tibial tubercle bursa wound Narrative: Follow up [facility] for right knee bursitis with skin necrosis. He did well with a 5 day MARIA INES dressing and then transitioned to foam dressing changes daily with transfer and antibiotic ointment. No noted problems in the interim. States drainage through the foam at each dressing change improving. Review of Systems Review of Systems: All systems reviewed & are unremarkable except as noted in HPI and below Constitutional: Constitutional: Denies fever(s) Eyes: Eyes: Denies blurry vision ENT: Reports Normal hearing present Cardiovascular: Cardiovascular: Denies chest pain and Denies dyspnea Respiratory: Respiratory: Denies dyspnea and Denies wheezing Gastrointestinal: Gastrointestinal: Denies abdominal pain Genitourinary: Genitourinary: Denies urinary urgency Musculoskeletal: Musculoskeletal: Reports as per HPI and Denies numbness Integumentary/Breasts: Skin/Breast: Denies changing lesions and Denies sores Neurologic: Reports Normal hearing present, Denies behavioral changes, Denies confusion, Denies numbness and Denies convulsions Psychiatric: Psychiatric: Denies behavioral changes, Denies confusion and Denies hallucinations Endocrine: Endocrine: Denies heat intolerance Hematologic/Lymphatic: Hematologic/Lymphatic: Denies easy bleeding Allergic/Immunologic: Allergic/Immunologic: Denies wheezing PMFSH Past Medical History Medical History Ulcer of right knee Prepatellar bursitis, right knee Cellulitis of right leg Effusion of bursa of right knee Right otitis media BMI 31.0-31.9,adult Bronchitis Elevated ALT measurement Elevated hemoglobin A1c Elevated fasting glucose Vitamin D deficiency Cough Snoring Screening for hyperlipidemia History of fatty infiltration of liver Screening for diabetes mellitus Fatigue Umbilical hernia Encounter for screening for malignant neoplasm of prostate Exposure to COVID-19 virus Surgical History Surgical History Hx of appendectomy Family History Family History Sibling Hypertension Diabetes mellitus Mother Family history of heart disease in male family member before age 55 Father Carcinoma of colon , Onset Age: 82 covid-19 Social History Social History (Reviewed 09/29/24 @ 08:49 by DESIREE Aguirre Smoking status: Never smoker Second hand tobacco smoke exposure: Yes Alcohol intake: never Substance use: never Substance use type: does not use Lack of Transportation: No Lack of Food: Never True Current Housing: I Have Housing Concerned About Future Housing: No Difficulty Paying Gas/Electric Bills: No Difficulty Paying for Meds: No Currently Unemployed: No Education: High School Diploma/GED Difficulty w/ Childcare or Family Care: No Living arrangements: with family Occupation/Education: occupation 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 Gender identity (if verbalized by the patient): Male Meds Home Medications and Allergies Home Medications ?Medication ?Instructions ?Recorded ?Confirmed ?Type metoprolol succinate 50 mg 50 mg PO DAILY #90 tabs 11/23/23 07/10/24 Rx tablet,extended release 24 hr cetirizine 10 mg capsule (Zyrtec) 10 mg PO DAILY PRN allergies 02/18/24 07/10/24 History cholecalciferol (vitamin D3) 125 125 mcg PO DAILY #30 tabs 06/18/24 07/10/24 Rx mcg (5,000 unit) tablet lisinopril 5 mg tablet 5 mg PO DAILY #90 tabs 06/18/24 07/10/24 Rx chlorhexidine gluconate 4 % 1 applic topical ONCE #236 mL 06/26/24 07/10/24 Rx topical liquid (Hibiclens) Allergies Allergy/AdvReac Type Severity Reaction Status Date / Time No Known Allergies Allergy Verified 07/10/24 09:33 Exam Const: General: healthy appearing; No in distress or confusion Orientation/consciousness: oriented to person, oriented to place, oriented to time and No confusion Resp: Effort & Inspection: normal respiratory effort and no audible wheezes Cardio: Rate: regular rate Rhythm: regular rhythm Extrem: Right upper extremity: normal to inspection Left upper extremity: normal to inspection Right lower extremity: hip/thigh Details: normal ROM; no tenderness, knee Details: abnormal to inspection, tenderness (anterior and medial joint line ) Location: of the medial joint line (moderate ) and of the pre-patellar area (moderate ), swelling (peripatellar and medial joint ), abnormal ROM (active range of motion -10 degrees extension, 110 degrees flexion) Details: pain with active ROM during Details: in extension and in flexion, knee ligament exam normal Details: anterior drawer test normal, posterior drawer test normal, valgus stress test normal and Zoë?s test normal, knee ligament exam abnormal Details: varus stress test normal (painful medial ), Willard's Test Details: positive medially and other (Open wound anterior tibial tubercle 2x1x0.3 cm undermining at the 11 o'clock position to 1 cm. 95% granulation tissue. No surrounding erythema. Mild serous drainage noted. ) and foot Detail s: normal capillary refill, toes with normal ROM, vascular exam Details: dorsalis pedis pulse present and motor-sensory exam Details: light-touch normal; no tenderness; no edema Left lower extremity: normal to inspection, normal capillary refill and knee Details: normal ROM (Active extension 5, flexion 130) and knee ligament exam normal; no tenderness Assessment and Plan Assessment and plan (1) Prepatellar bursitis, right knee: Code(s): M70.41 - Prepatellar bursitis, right knee Status: Acute Assessment and Plan: Patient returns to [facility] for evaluation of his right knee ulcer status post prepatellar bursa. Updated history, physical exam reviewed with the patient. Interval changes reviewed. Significant improvement s/p MARIA INES dressing. Insurance not approved for graft application. Repeat MARIA INES wound VAC today. F/u in 1 week for reevaluation with the [facility] wound clinic nurses. 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
== END 2024-10-08 23:59 | disposition home or self-care (01) ==
LOC: ANHWOC 07:08
PROVIDERS: PCP Family Medicine; Visit Provider Nurse Practitioner Family
DX: L97.813 Non-pressure chronic ulcer of other part of right lower leg with necrosis of muscle (principal); M25.461 Effusion, right knee; M70.41 Prepatellar bursitis, right knee; Z48.00 Encounter for change or removal of nonsurgical wound dressing
CPT/HCPCS: 97607; 99213; 99214; A9270; G0463

== ENCOUNTER 2024-12-25 07:08 | Outpatient (RCR) | payer BC, SELFPAY ==
[2024-10-09 00:03] VITALS: BMI 33.7
--- NOTE | 2024-10-16 13:08 | PM.IMHP ---
H&P: HPI History of Present Illness Date/Time: 10/16/24 8:30 Chief Complaint: Right tibial tubercle bursa wound Narrative: Follow up [facility] for right knee bursitis with skin necrosis. He did well with a 5 day MARIA INES dressing and then transitioned to foam dressing changes daily with transfer and antibiotic ointment. He has been in [place] the past week. No noted problems in the interim. States drainage through the foam at each dressing change improving. [facility] Past Medical History Medical History Ulcer of right knee Prepatellar bursitis, right knee Cellulitis of right leg Effusion of bursa of right knee Right otitis media BMI 31.0-31.9,adult Bronchitis Elevated ALT measurement Elevated hemoglobin A1c Elevated fasting glucose Vitamin D deficiency Cough Snoring Screening for hyperlipidemia History of fatty infiltration of liver Screening for diabetes mellitus Fatigue Umbilical hernia Encounter for screening for malignant neoplasm of prostate Exposure to COVID-19 virus Surgical History Surgical History Hx of appendectomy Family History Family History Sibling Hypertension Diabetes mellitus Mother Family history of heart disease in male family member before age 55 Father Carcinoma of colon , Onset Age: 82 covid-19 Social History Social History Smoking status: Never smoker Second hand tobacco smoke exposure: Yes Alcohol intake: never Substance use: never Substance use type: does not use Lack of Transportation: No Lack of Food: Never True Current Housing: I Have Housing Concerned About Future Housing: No Difficulty Paying Gas/Electric Bills: No Difficulty Paying for Meds: No Currently Unemployed: No Education: High School Diploma/GED Difficulty w/ Childcare or Family Care: No Living arrangements: with family Occupation/Education: occupation 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 Gender identity (if verbalized by the patient): Male Meds Home Medications and Allergies Home Medications ?Medication ?Instructions ?Recorded ?Confirmed ?Type metoprolol succinate 50 mg 50 mg PO DAILY #90 tabs 11/23/23 07/10/24 Rx tablet,extended release 24 hr cetirizine 10 mg capsule (Zyrtec) 10 mg PO DAILY PRN allergies 02/18/24 07/10/24 History cholecalciferol (vitamin D3) 125 125 mcg PO DAILY #30 tabs 06/18/24 07/10/24 Rx mcg (5,000 unit) tablet lisinopril 5 mg tablet 5 mg PO DAILY #90 tabs 06/18/24 07/10/24 Rx chlorhexidine gluconate 4 % 1 applic topical ONCE #236 mL 06/26/24 07/10/24 Rx topical liquid (Hibiclens) Allergies Allergy/AdvReac Type Severity Reaction Status Date / Time No Known Allergies Allergy Verified 07/10/24 09:33 Exam Extrem: Right upper extremity: normal to inspection Left upper extremity: normal to inspection Right lower extremity: hip/thigh Details: normal ROM; no tenderness, knee Details: abnormal to inspection, tenderness (anterior and medial joint line ) Location: of the medial joint line (moderate ) and of the pre-patellar area (moderate ), swelling (peripatellar and medial joint ), abnormal ROM (active range of motion -10 degrees extension, 110 degrees flexion) Details: pain with active ROM during Details: in extension and in flexion, knee ligament exam normal Details: anterior drawer test normal, posterior drawer test normal, valgus stress test normal and Zoë?s test normal, knee ligament exam abnormal Details: varus stress test normal (painful medial ), Willard's Test Details: positive medially and other (Open wound anterior tibial tubercle Now divided into proximal and distal by interval healing tissue, wound dimensions per Wound Clinic note. undermining at the 11 o'clock position to 1 cm. 95% granulation tissue. No surrounding erythema. Mild serous drainage noted. ) and foot Details: normal capillary refill, toes with normal ROM, vascular exam Details: dorsalis pedis pulse present and motor-sensory exam Details: light-touch normal; no tenderness; no edema Assessment and Plan Assessment and plan (1) Prepatellar bursitis, right knee: Code(s): M70.41 - Prepatellar bursitis, right knee Status: Acute Plan Nonhealing prepatellar bursa wound right knee. Some improvement with wound VAC. Indicated for grafting and debridement today. Follow-up in 1 week for dressing change. Reassessment at that time for repeat grafting.
--- NOTE | 2024-10-16 13:11 | P.OP_ITS ---
Procedure Note - Detailed Date of Procedure 10/16/24 Pre-op Diagnosis M70.41 Prepatellar bursitis, right knee. Open woun Post-op Diagnosis Same Procedure Performed Excisional debridement right anterior knee wound 1 x 1 cm. Application of graft. Surgeon Vinicius Macedo MD Anesthesia None Indications 59-year-old with nonhealing prepatellar bursa wound right knee. Indicated for grafting after debridement Description of Procedure informed consent given. Right knee prepped with alcohol solution. Pickup, forceps, scissor used to debride the anterior knee wound skin, subcutaneous tissue and muscle layer. Nonviable tissue excised and passed off. Good b leeding granulation tissue left in place. Allograft tissue replacement then prepared on the back table and applied to the wound including the undermining area at the 11 o'clock position. Graft reconstituted with saline. Sterile dressing applied. Estimated Blood Loss 1 Tourniquet Time Total Tourniquet Time: 0 Drains No Packing Yes Pathology None sent Complications None Condition Stable Disposition Same day [facility] Billing Surgery - Charge Forward: Surgery Billing ([id number])
--- NOTE | 2024-10-23 08:48 | P.HP_ITS ---
H&P: HPI History of Present Illness Date/Time: 10/23/24 08:48 Chief Complaint: Right tibial tubercle bursa wound Narrative: Follow up [facility] for right knee bursitis with skin necrosis. No new concerns. Significant improvement s/p graft last week. Review of Systems Review of Systems: All systems reviewed & are unremarkable except as noted in HPI and below Constitutional: Constitutional: Denies fever(s) Eyes: Eyes: Denies blurry vision ENT: Reports Normal hearing present Cardiovascular: Cardiovascular: Denies chest pain and Denies dyspnea Respiratory: Respiratory: Denies dyspnea and Denies wheezing Gastrointestinal: Gastrointestinal: Denies abdominal pain Genitourinary: Genitourinary: Denies urinary urgency Musculoskeletal: Musculoskeletal: Reports as per HPI and Denies numbness Integumentary/Breasts: Skin/Breast: Denies changing lesions and Denies sores Neurologic: Reports Normal hearing present, Denies behavioral changes, Denies confusion, Denies numbness and Denies convulsions Psychiatric: Psychiatric: Denies behavioral changes, Denies confusion and Denies hallucinations Endocrine: Endocrine: Denies heat intolerance Hematologic/Lymphatic: Hematologic/Lymphatic: Denies easy bleeding Allergic/Immunologic: Allergic/Immunologic: Denies wheezing PMFSH Past Medical History Medical History Ulcer of right knee Prepatellar bursitis, right knee Cellulitis of right leg Effusion of bursa of right knee Right otitis media BMI 31.0-31.9,adult Bronchitis Elevated ALT measurement Elevated hemoglobin A1c Elevated fasting glucose Vitamin D deficiency Cough Snoring Screening for hyperlipidemia History of fatty infiltration of liver Screening for diabetes mellitus Fatigue Umbilical hernia Encounter for screening for malignant neoplasm of prostate Exposure to COVID-19 virus Surgical History Surgical History Hx of appendectomy Family History Family History Sibling Hypertension Diabetes mellitus Mother Family history of heart disease in male family member before age 55 Father Carcinoma of colon , Onset Age: 82 covid-19 Social History Social History Smoking status: Never smoker Second hand tobacco smoke exposure: Yes Alcohol intake: never Substance use: never Substance use type: does not use Lack of Transportation: No Lack of Food: Never True Current Housing: I Have Housing Concerned About Future Housing: No Difficulty Paying Gas/Electric Bills: No Difficulty Paying for Meds: No Currently Unemployed: No Education: High School Diploma/GED Difficulty w/ Childcare or Family Care: No Living arrangements: with family Occupation/Education: occupation 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 Gender identity (if verbalized by the patient): Male Meds Home Medications and Allergies Home Medications ?Medication ?Instructions ?Recorded ?Confirmed ?Type metoprolol succinate 50 mg 50 mg PO DAILY #90 tabs 11/23/23 07/10/24 Rx tablet,extended release 24 hr cetirizine 10 mg capsule (Zyrtec) 10 mg PO DAILY PRN allergies 02/18/24 07/10/24 History cholecalciferol (vitamin D3) 125 125 mcg PO DAILY #30 tabs 06/18/24 07/10/24 Rx mcg (5,000 unit) tablet lisinopril 5 mg tablet 5 mg PO DAILY #90 tabs 06/18/24 07/10/24 Rx chlorhexidine gluconate 4 % 1 applic topical ONCE #236 mL 06/26/24 07/10/24 Rx topical liquid (Hibiclens) Allergies Allergy/AdvReac Type Severity Reaction Status Date / Time No Known Allergies Allergy Verified 07/10/24 09:33 Exam Extrem: Right upper extremity: normal to inspection Left upper extremity: normal to inspection Right lower extremity: hip/thigh Details: normal ROM; no tenderness, knee Details: abnormal to inspection, tenderness (anterior and medial joint line ) Location: of the medial joint line (moderate ) and of the pre-patellar area (moderate ), swelling (peripatellar and medial joint ), abnormal ROM (active range of motion -10 degrees extension, 110 degrees flexion) Details: pain with active ROM during Details: in extension and in flexion, knee ligament exam normal Details: anterior drawer test normal, posterior drawer test normal, valgus stress test normal and Zoë?s test normal, knee ligament exam abnormal Details: varus stress test normal (painful medial ), Willard's Test Details: positive medially and other (Open wound anterior tibial tubercle Now divided into proximal and distal by interval healing tissue, wound dimensions per Wound Clinic note. undermining at the 11 o'clock position to 0.5 cm. 100% granulation tissue. No surrounding erythema. Mild serous drainage noted. ) and foot Details: normal capillary refill, toes with normal ROM, vascular exam Details: dorsalis pedis pulse present and motor-sensory exam Details: light- touch normal; no tenderness; no edema Assessment and Plan Assessment and plan (1) Prepatellar bursitis, right knee: Code(s): M70.41 - Prepatellar bursitis, right knee Status: Acute Assessment and Plan: Nonhealing prepatellar bursa wound right knee. Significant improvement s/p graft last week. Unable to repeat graft today. Continue daily dressing changes. Add antwon. Follow-up in 1 week for dressing change. Reassessment at that time for repeat grafting.
--- NOTE | 2024-11-06 09:56 | PM.IMHP ---
H&P: HPI History of Present Illness Date/Time: 11/06/24 08:45 Chief Complaint: Right tibial tubercle bursa wound Narrative: Follow up [facility] for right knee bursitis with skin necrosis. No new concerns. Significant improvement s/p graft 3 weeks ago. Review of Systems Review of Systems: All systems reviewed & are unremarkable except as noted in HPI and below Constitutional: Constitutional: Denies fever(s) Eyes: Eyes: Denies blurry vision ENT: Reports Normal hearing present Cardiovascular: Cardiovascular: Denies chest pain and Denies dyspnea Respiratory: Respiratory: Denies dyspnea and Denies wheezing Gastrointestinal: Gastrointestinal: Denies abdominal pain Genitourinary: Genitourinary: Denies urinary urgency Musculoskeletal: Musculoskeletal: Reports as per HPI and Denies numbness Integumentary/Breasts: Skin/Breast: Denies changing lesions and Denies sores Neurologic: Reports Normal hearing present, Denies behavioral changes, Denies confusion, Denies numbness and Denies convulsions Psychiatric: Psychiatric: Denies behavioral changes, Denies confusion and Denies hallucinations Endocrine: Endocrine: Denies heat intolerance Hematologic/Lymphatic: Hematologic/Lymphatic: Denies easy bleeding Allergic/Immunologic: Allergic/Immunologic: Denies wheezing PMFSH Past Medical History Medical History Ulcer of right knee Prepatellar bursitis, right knee Cellulitis of right leg Effusion of bursa of right knee Right otitis media BMI 31.0-31.9,adult Bronchitis Elevated ALT measurement Elevated hemoglobin A1c Elevated fasting glucose Vitamin D deficiency Cough Snoring Screening for hyperlipidemia History of fatty infiltration of liver Screening for diabetes mellitus Fatigue Umbilical hernia Encounter for screening for malignant neoplasm of prostate Exposure to COVID-19 virus Surgical History Surgical History Hx of appendectomy Family History Family History Sibling Hypertension Diabetes mellitus Mother Family history of heart disease in male family member before age 55 Father Carcinoma of colon , Onset Age: 82 covid-19 Social History Social History Smoking status: Never smoker Second hand tobacco smoke exposure: Yes Alcohol intake: never Substance use: never Substance use type: does not use Lack of Transportation: No Lack of Food: Never True Current Housing: I Have Housing Concerned About Future Housing: No Difficulty Paying Gas/Electric Bills: No Difficulty Paying for Meds: No Currently Unemployed: No Education: High School Diploma/GED Difficulty w/ Childcare or Family Care: No Living arrangements: with family Occupation/Education: occupation 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 Gender identity (if verbalized by the patient): Male Meds Home Medications and Allergies Home Medications ?Medication ?Instructions ?Recorded ?Confirmed ?Type metoprolol succinate 50 mg 50 mg PO DAILY #90 tabs 11/23/23 07/10/24 Rx tablet,extended release 24 hr cetirizine 10 mg capsule (Zyrtec) 10 mg PO DAILY PRN allergies 02/18/24 07/10/24 History cholecalciferol (vitamin D3) 125 125 mcg PO DAILY #30 tabs 06/18/24 07/10/24 Rx mcg (5,000 unit) tablet lisinopril 5 mg tablet 5 mg PO DAILY #90 tabs 06/18/24 07/10/24 Rx chlorhexidine gluconate 4 % 1 applic topical ONCE #236 mL 06/26/24 07/10/24 Rx topical liquid (Hibiclens) Allergies Allergy/AdvReac Type Severity Reaction Status Date / Time No Known Allergies Allergy Verified 07/10/24 09:33 Exam Extrem: Right upper extremity: normal to inspection Left upper extremity: normal to inspection Right lower extremity: hip/thigh Details: normal ROM; no tenderness, knee Details: abnormal to inspection, tenderness (anterior and medial joint line ) Location: of the medial joint line (moderate ) and of the pre-patellar area (moderate ), swelling (peripatellar and medial joint ), abnormal ROM (active range of motion -10 degrees extension, 110 degrees flexion) Details: pain with active ROM during Details: in extension and in flexion, knee ligament exam normal Details: anterior drawer test normal, posterior drawer test normal, valgus stress test normal and Zoë?s test normal, knee ligament exam abnormal Details: varus stress test normal (painful medial ), Willard's Test Details: positive medially and other (Open wound anterior tibial tubercle, divided into proximal and distal by interval healing tissue. wound dimensions per Wound Clinic note. undermining at the 11 o'clock position to 0.9 cm. 100% granulation tissue. No surrounding erythema. Mild serous drainage noted. ) and foot Details: normal capillary refill, toes with normal ROM, vascular exam Details: dorsalis pedis pulse present and motor-sensory exam Details: light-touch normal; no tenderness; no edema Assessment and Plan Assessment and plan (1) Prepatellar bursitis, right knee: Code(s): M70.41 - Prepatellar bursitis, right knee Status: Acute Assessment and Plan: Discussed nonoperative and operative treatment options with the patient. Risks and benefits of each as well as alternatives were reviewed. All of the patient's questions were answered. The risks of surgery reviewed including but not limited to: Neurovascular damage, wound complication, infection, blood clot, pulmonary embolus, stroke, myocardial infarction, and anesthetic risks up to and including . Continued pain and possible dysfunction were explained. Specific risks of the procedure including later recurrence of deformity. No guarantees were offered. If hardware used, discussed risk of failure/ breakage and possible need for removal. If complications occur, the patient understands the need for further treatment, possible further surgery. Patient verbalizes understanding and wishes to proceed. PLAN:graft right knee Plan Nonhealing prepatellar bursa wound right knee. Some improvement with previous graft. Indicated for grafting and debridement today. Follow-up in 1 week for dressing change. Reassessment at that time for repeat grafting. Office Procedure General Pre-Procedure Pre-procedure care: Consent was obtained, Procedures/risks were explained, Questions were answered, Correct patient identified and Correct side and site confirmed Procedure Procedure Details: right knee wound sterilized with alcohol prep. Application of synthetic skin graft to right knee. Sterile dressing applied. Post Procedure Patient tolerated the procedure well?: Tolerated procedure well Comments: CPT 13583
--- NOTE | 2024-11-13 11:02 | P.HP_ITS ---
H&P: HPI History of Present Illness Date/Time: 11/13/24 8:32 Chief Complaint: Right tibial tubercle bursa wound Narrative: Follow up [facility] for right knee bursitis with skin necrosis. No new concerns. Significant improvement s/p graft 4, 1 weeks ago. Review of Systems Review of Systems: All systems reviewed & are unremarkable except as noted in HPI and below Constitutional: Constitutional: Denies fever(s) Eyes: Eyes: Denies blurry vision ENT: Reports Normal hearing present Cardiovascular: Cardiovascular: Denies chest pain and Denies dyspnea Respiratory: Respiratory: Denies dyspnea and Denies wheezing Gastrointestinal: Gastrointestinal: Denies abdominal pain Genitourinary: Genitourinary: Denies urinary urgency Musculoskeletal: Musculoskeletal: Reports as per HPI and Denies numbness Integumentary/Breasts: Skin/Breast: Denies changing lesions and Denies sores Neurologic: Reports Normal hearing present, Denies behavioral changes, Denies confusion, Denies numbness and Denies convulsions Psychiatric: Psychiatric: Denies behavioral changes, Denies confusion and Denies hallucinations Endocrine: Endocrine: Denies heat intolerance Hematologic/Lymphatic: Hematologic/Lymphatic: Denies easy bleeding Allergic/Immunologic: Allergic/Immunologic: Denies wheezing PMFSH Past Medical History Medical History Ulcer of right knee Prepatellar bursitis, right knee Cellulitis of right leg Effusion of bursa of right knee Right otitis media BMI 31.0-31.9,adult Bronchitis Elevated ALT measurement Elevated hemoglobin A1c Elevated fasting glucose Vitamin D deficiency Cough Snoring Screening for hyperlipidemia History of fatty infiltration of liver Screening for diabetes mellitus Fatigue Umbilical hernia Encounter for screening for malignant neoplasm of prostate Exposure to COVID-19 virus Surgical History Surgical History Hx of appendectomy Family History Family History Sibling Hypertension Diabetes mellitus Mother Family history of heart disease in male family member before age 55 Father Carcinoma of colon , Onset Age: 82 covid-19 Social History Social History Smoking status: Never smoker Second hand tobacco smoke exposure: Yes Alcohol intake: never Substance use: never Substance use type: does not use Lack of Transportation: No Lack of Food: Never True Current Housing: I Have Housing Concerned About Future Housing: No Difficulty Paying Gas/Electric Bills: No Difficulty Paying for Meds: No Currently Unemployed: No Education: High School Diploma/GED Difficulty w/ Childcare or Family Care: No Living arrangements: with family Occupation/Education: occupation 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 Gender identity (if verbalized by the patient): Male Meds Home Medications and Allergies Home Medications ?Medication ?Instructions ?Recorded ?Confirmed ?Type metoprolol succinate 50 mg 50 mg PO DAILY #90 tabs 11/23/23 07/10/24 Rx tablet,extended release 24 hr cetirizine 10 mg capsule (Zyrtec) 10 mg PO DAILY PRN allergies 02/18/24 07/10/24 History cholecalciferol (vitamin D3) 125 125 mcg PO DAILY #30 tabs 06/18/24 07/10/24 Rx mcg (5,000 unit) tablet lisinopril 5 mg tablet 5 mg PO DAILY #90 tabs 06/18/24 07/10/24 Rx chlorhexidine gluconate 4 % 1 applic topical ONCE #236 mL 06/26/24 07/10/24 Rx topical liquid (Hibiclens) Allergies Allergy/AdvReac Type Severity Reaction Status Date / Time No Known Allergies Allergy Verified 07/10/24 09:33 Exam Extrem: Right upper extremity: normal to inspection Left upper extremity: normal to inspection Right lower extremity: hip/thigh Details: normal ROM; no tenderness, knee Details: abnormal to inspection, tenderness (anterior and medial joint line ) Location: of the medial joint line (moderate ) and of the pre-patellar area (moderate ), swelling (peripatellar and medial joint ), abnormal ROM (active range of motion -10 degrees extension, 110 degrees flexion) Details: pain with active ROM during Details: in extension and in flexion, knee ligament exam normal Details: anterior drawer test normal, posterior drawer test normal, valgus stress test normal and Zoë?s test normal, knee ligament exam abnormal Details: varus stress test normal (painful medial ), Willard's Test Details: positive medially and other (Open wound anterior tibial tubercle, divided into proximal and distal by interval healing tissue. wound dimensions per Wound Clinic note. undermining at the 11 o'clock position to 0.5cm. 100% granulation tissue. mild surrounding erythema. Mild serous drainage noted. ) and foot Details: normal capillary refill, toes with normal ROM, vascular exam Details: dorsalis pedis pulse present and motor-sensory exam Details: light- touch normal; no tenderness; no edema Assessment and Plan Assessment and plan (1) Prepatellar bursitis, right knee: Code(s): M70.41 - Prepatellar bursitis, right knee Status: Acute Assessment and Plan: right prepatellar bursa wound. Progressing well. Noted improvement in wound dimensions and healing. Appearance of surrounding fungal superinfection due to increased drainage and moisture. Will start antifungal ointment for the next week and dry gauze dressing changes. May wash and dry wound. Follow-up in 1 week for re-evaluation with possible re-application of graft at that time. PLAN:graft right knee Plan Nonhealing prepatellar bursa wound right knee. improvement with previous graft. Follow-up in 1 week for dressing change. Reassessment at that time for repeat grafting.
--- NOTE | 2024-11-20 14:23 | P.HP_ITS ---
H&P: HPI History of Present Illness Date/Time: 11/20/24 14:23 Chief Complaint: Right tibial tubercle bursa wound Narrative: Follow up [facility] for right knee bursitis with skin necrosis. No new concerns. Significant improvement s/p graft 5, 1 weeks ago. Review of Systems Review of Systems: All systems reviewed & are unremarkable except as noted in HPI and below Constitutional: Constitutional: Denies fever(s) Eyes: Eyes: Denies blurry vision ENT: Reports Normal hearing present Cardiovascular: Cardiovascular: Denies chest pain and Denies dyspnea Respiratory: Respiratory: Denies dyspnea and Denies wheezing Gastrointestinal: Gastrointestinal: Denies abdominal pain Genitourinary: Genitourinary: Denies urinary urgency Musculoskeletal: Musculoskeletal: Reports as per HPI and Denies numbness Integumentary/Breasts: Skin/Breast: Denies changing lesions and Denies sores Neurologic: Reports Normal hearing present, Denies behavioral changes, Denies confusion, Denies numbness and Denies convulsions Psychiatric: Psychiatric: Denies behavioral changes, Denies confusion and Denies hallucinations Endocrine: Endocrine: Denies heat intolerance Hematologic/Lymphatic: Hematologic/Lymphatic: Denies easy bleeding Allergic/Immunologic: Allergic/Immunologic: Denies wheezing PMFSH Past Medical History Medical History Ulcer of right knee Prepatellar bursitis, right knee Cellulitis of right leg Effusion of bursa of right knee Right otitis media BMI 31.0-31.9,adult Bronchitis Elevated ALT measurement Elevated hemoglobin A1c Elevated fasting glucose Vitamin D deficiency Cough Snoring Screening for hyperlipidemia History of fatty infiltration of liver Screening for diabetes mellitus Fatigue Umbilical hernia Encounter for screening for malignant neoplasm of prostate Exposure to COVID-19 virus Surgical History Surgical History Hx of appendectomy Family History Family History Sibling Hypertension Diabetes mellitus Mother Family history of heart disease in male family member before age 55 Father Carcinoma of colon , Onset Age: 82 covid-19 Social History Social History Smoking status: Never smoker Second hand tobacco smoke exposure: Yes Alcohol intake: never Substance use: never Substance use type: does not use Lack of Transportation: No Lack of Food: Never True Current Housing: I Have Housing Concerned About Future Housing: No Difficulty Paying Gas/Electric Bills: No Difficulty Paying for Meds: No Currently Unemployed: No Education: High School Diploma/GED Difficulty w/ Childcare or Family Care: No Living arrangements: with family Occupation/Education: occupation 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 Gender identity (if verbalized by the patient): Male Meds Home Medications and Allergies Home Medications ?Medication ?Instructions ?Recorded ?Confirmed ?Type metoprolol succinate 50 mg 50 mg PO DAILY #90 tabs 11/23/23 07/10/24 Rx tablet,extended release 24 hr cetirizine 10 mg capsule (Zyrtec) 10 mg PO DAILY PRN allergies 02/18/24 07/10/24 History cholecalciferol (vitamin D3) 125 125 mcg PO DAILY #30 tabs 06/18/24 07/10/24 Rx mcg (5,000 unit) tablet lisinopril 5 mg tablet 5 mg PO DAILY #90 tabs 06/18/24 07/10/24 Rx chlorhexidine gluconate 4 % 1 applic topical ONCE #236 mL 06/26/24 07/10/24 Rx topical liquid (Hibiclens) Allergies Allergy/AdvReac Type Severity Reaction Status Date / Time No Known Allergies Allergy Verified 07/10/24 09:33 Exam Extrem: Right upper extremity: normal to inspection Left upper extremity: normal to inspection Right lower extremity: hip/thigh Details: normal ROM; no tenderness, knee Details: abnormal to inspection, tenderness (anterior and medial joint line ) Location: of the medial joint line (moderate ) and of the pre-patellar area (moderate ), swelling (peripatellar and medial joint ), abnormal ROM (active range of motion -10 degrees extension, 110 degrees flexion) Details: pain with active ROM during Details: in extension and in flexion, knee ligament exam normal Details: anterior drawer test normal, posterior drawer test normal, valgus stress test normal and Zoë?s test normal, knee ligament exam abnormal Details: varus stress test normal (painful medial ), Willard's Test Details: positive medially and other (Open wound anterior tibial tubercle, divided into proximal and distal by interval healing tissue. wound dimensions per Wound Clinic note. undermining at the 11 o'clock position to 0.4 cm. 100% granulation tissue. mild surrounding erythema. Mild serous drainage noted. ) and foot Details: normal capillary refill, toes with normal ROM, vascular exam Details: dorsalis pedis pulse present and motor-sensory exam Details: light- touch normal; no tenderness; no edema Assessment and Plan Assessment and plan (1) Prepatellar bursitis, right knee: Code(s): M70.41 - Prepatellar bursitis, right knee Status: Acute Assessment and Plan: Right prepatellar bursa wound. Progressing well. Noted improvement in wound dimensions and healing. Appearance of surrounding fungal superinfection due to increased drainage and moisture. Will continue antifungal ointment for the next week and dry gauze dressing changes. May wash and dry wound. Follow up in 2 weeks.
--- NOTE | 2024-11-27 08:54 | P.HP_ITS ---
H&P: HPI History of Present Illness Date/Time: 11/27/24 08:34 Chief Complaint: Right tibial tubercle bursa wound Narrative: Follow up [facility] for right knee bursitis with skin necrosis. No new concerns. Significant improvement s/p graft 6, 2 weeks ago. Using Gent ointment and daily dressings. [facility] Past Medical History Medical History Ulcer of right knee Prepatellar bursitis, right knee Cellulitis of right leg Effusion of bursa of right knee Right otitis media BMI 31.0-31.9,adult Bronchitis Elevated ALT measurement Elevated hemoglobin A1c Elevated fasting glucose Vitamin D deficiency Cough Snoring Screening for hyperlipidemia History of fatty infiltration of liver Screening for diabetes mellitus Fatigue Umbilical hernia Encounter for screening for malignant neoplasm of prostate Exposure to COVID-19 virus Surgical History Surgical History Hx of appendectomy Family History Family History Sibling Hypertension Diabetes mellitus Mother Family history of heart disease in male family member before age 55 Father Carcinoma of colon , Onset Age: 82 covid-19 Social History Social History Smoking status: Never smoker Second hand tobacco smoke exposure: Yes Alcohol intake: never Substance use: never Substance use type: does not use Lack of Transportation: No Lack of Food: Never True Current Housing: I Have Housing Concerned About Future Housing: No Difficulty Paying Gas/Electric Bills: No Difficulty Paying for Meds: No Currently Unemployed: No Education: High School Diploma/GED Difficulty w/ Childcare or Family Care: No Living arrangements: with family Occupation/Education: occupation 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 Gender identity (if verbalized by the patient): Male Meds Home Medications and Allergies Home Medications ?Medication ?Instructions ?Recorded ?Confirmed ?Type metoprolol succinate 50 mg 50 mg PO DAILY #90 tabs 11/23/23 07/10/24 Rx tablet,extended release 24 hr cetirizine 10 mg capsule (Zyrtec) 10 mg PO DAILY PRN allergies 05/07/24 09/27/24 History cholecalciferol (vitamin D3) 125 125 mcg PO DAILY #30 tabs 06/18/24 07/10/24 Rx mcg (5,000 unit) tablet lisinopril 5 mg tablet 5 mg PO DAILY #90 tabs 06/18/24 07/10/24 Rx chlorhexidine gluconate 4 % 1 applic topical ONCE #236 mL 06/26/24 07/10/24 Rx topical liquid (Hibiclens) Allergies Allergy/AdvReac Type Severity Reaction Status Date / Time No Known Allergies Allergy Verified 07/10/24 09:33 Exam Extrem: Right upper extremity: normal to inspection Left upper extremity: normal to inspection Right lower extremity: hip/thigh Details: normal ROM; no tenderness, knee Details: abnormal to inspection, tenderness (anterior and medial joint line ) Location: of the medial joint line (moderate ) and of the pre-patellar area (moderate ), swelling (peripatellar and medial joint ), abnormal ROM (active range of motion -10 degrees extension, 110 degrees flexion) Details: pain with active ROM during Details: in extension and in flexion, knee ligament exam normal Details: anterior drawer test normal, posterior drawer test normal, valgus stress test normal and Zoë?s test normal, knee ligament exam abnormal Details: varus stress test normal (painful medial ), Willard's Test Details: positive medially and other (Open wound anterior tibial tubercle, proximal improved but still open. Distal healed. wound dimensions per Wound Clinic note. undermining at the 11 o'clock position to 0.2 cm. 100% granulation tissue. mild surrounding erythema. No drainage. ) and foot Details: normal capillary refill, toes with normal ROM, vascular exam Details: dorsalis pedis pulse present and motor-sensory exam Details: light-touch normal; no tenderness; no edema Assessment and Plan Assessment and plan (1) Prepatellar bursitis, right knee: Code(s): M70.41 - Prepatellar bursitis, right knee Status: Acute Assessment and Plan: Right prepatellar bursa wound. Progressing well. Noted improvement in wound dimensions and healing. Continue gent ointment and dressing changes May wash and dry wound. Follow up in 1 week.
--- NOTE | 2024-12-04 08:40 | PM.IMHP ---
H&P: HPI History of Present Illness Date/Time: 12/04/24 08:40 <DIEUDONNE Aguirre - Last Filed: 12/04/24 08:40> Chief Complaint: Right tibial tubercle bursa wound <Vinicius Macedo MD - Last Filed: 12/04/24 08:59> Narrative: Follow up [facility] for right knee bursitis with skin necrosis. No new concerns. Significant improvement s/p graft 7, 3 weeks ago. Using Gent ointment and daily dressings. <Vinicius Macedo MD - Last Filed: 12/04/24 08:59> Review of Systems Review of Systems: All systems reviewed & are unremarkable except as noted in HPI and below <Vinicius Macedo MD - Last Filed: 12/04/24 08:59> Constitutional: Constitutional: Denies fever(s) <Vinicius Macedo MD - Last Filed: 12/04/24 08:59> Eyes: Eyes: Denies blurry vision <Vinicius Macedo MD - Last Filed: 12/04/24 08:59> ENT: Reports Normal hearing present <Vinicius Macedo MD - Last Filed: 12/04/24 08:59> Cardiovascular: Cardiovascular: Denies chest pain and Denies dyspnea <Vinicius Macedo MD - Last Filed: 12/04/24 08:59> Respiratory: Respiratory: Denies dyspnea and Denies wheezing <Vinicius Macedo MD - Last Filed: 12/04/24 08:59> Gastrointestinal: Gastrointestinal: Denies abdominal pain <Vinicius Macedo MD - Last Filed: 12/04/24 08:59> Genitourinary: Genitourinary: Denies urinary urgency <Vinicius Macedo MD - Last Filed: 12/04/24 08:59> Musculoskeletal: Musculoskeletal: Reports as per HPI and Denies numbness <Vinicius Macedo MD - Last Filed: 12/04/24 08:59> Integumentary/Breasts: Skin/Breast: Denies changing lesions and Denies sores <Vinicius Macedo MD - Last Filed: 12/04/24 08:59> Neurologic: Reports Normal hearing present, Denies behavioral changes, Denies confusion, Denies numbness and Denies convulsions <Vinicius Macedo MD - Last Filed: 12/04/24 08:59> Psychiatric: Psychiatric: Denies behavioral changes, Denies confusion and Denies hallucinations <Vinicius Macedo MD - Last Filed: 12/04/24 08:59> Endocrine: Endocrine: Denies heat intolerance <Vinicius Macedo MD - Last Filed: 12/04/24 08:59> Hematologic/Lymphatic: Hematologic/Lymphatic: Denies easy bleeding <Vinicius Macedo MD - Last Filed: 12/04/24 08:59> Allergic/Immunologic: Allergic/Immunologic: Denies wheezing <Vinicius Macedo MD - Last Filed: 12/04/24 08:59> [facility] Past Medical History Medical History: Medical History Ulcer of right knee Prepatellar bursitis, right knee Cellulitis of right leg Effusion of bursa of right knee Right otitis media BMI 31.0-31.9,adult Bronchitis Elevated ALT measurement Elevated hemoglobin A1c Elevated fasting glucose Vitamin D deficiency Cough Snoring Screening for hyperlipidemia History of fatty infiltration of liver Screening for diabetes mellitus Fatigue Umbilical hernia Encounter for screening for malignant neoplasm of prostate Exposure to COVID-19 virus <DIEUDONNE Aguirre - Last Filed: 12/04/24 08:40> Surgical History Surgical History: Surgical History Hx of appendectomy <DIEUDONNE Aguirre - Last Filed: 12/04/24 08:40> Family History Family History: Family History Sibling Hypertension Diabetes mellitus Mother Family history of heart disease in male family member before age 55 Father Carcinoma of colon , Onset Age: 82 covid-19 <DIEUDONNE Aguirre - Last Filed: 12/04/24 08:40> Social History Social History: Social History Smoking status: Never smoker Second hand tobacco smoke exposure: Yes Alcohol intake: never Substance use: never Substance use type: does not use Lack of Transportation: No Lack of Food: Never True Current Housing: I Have Housing Concerned About Future Housing: No Difficulty Paying Gas/Electric Bills: No Difficulty Paying for Meds: No Currently Unemployed: No Education: High School Diploma/GED Difficulty w/ Childcare or Family Care: No Living arrangements: with family Occupation/Education: occupation 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 Gender identity (if verbalized by the patient): Male <DIEUDONNE Aguirre - Last Filed: 12/04/24 08:40> Meds Home Medications and Allergies Home medications: Home Medications ?Medication ?Instructions ?Recorded ?Confirmed ?Type metoprolol succinate 50 mg 50 mg PO DAILY #90 tabs 11/23/23 07/10/24 Rx tablet,extended release 24 hr cetirizine 10 mg capsule (Zyrtec) 10 mg PO DAILY PRN allergies 02/18/24 07/10/24 History cholecalciferol (vitamin D3) 125 125 mcg PO DAILY #30 tabs 06/18/24 07/10/24 Rx mcg (5,000 unit) tablet lisinopril 5 mg tablet 5 mg PO DAILY #90 tabs 06/18/24 07/10/24 Rx chlorhexidine gluconate 4 % 1 applic topical ONCE #236 mL 06/26/24 07/10/24 Rx topical liquid (Hibiclens) <DIEUDONNE Aguirre - Last Filed: 12/04/24 08:40> Allergies/Adverse reactions: Allergies Allergy/AdvReac Type Severity Reaction Status Date / Time No Known Allergies Allergy Verified 07/10/24 09:33 <DIEUDONNE Aguirre - Last Filed: 12/04/24 08:40> Exam Extrem: Right upper extremity: normal to inspection <Vinicius Macedo MD - Last Filed: 12/04/24 08:59> Left upper extremity: normal to inspection <Vinicius Macedo MD - Last Filed: 12/04/24 08:59> Right lower extremity: hip/thigh Details: normal ROM; no tenderness, knee Details: abnormal to inspection, tenderness (anterior and medial joint line ) Location: of the medial joint line (moderate ) and of the pre-patellar area (moderate ), swelling (peripatellar and medial joint ), abnormal ROM (active range of motion -10 degrees extension, 110 degrees flexion) Details: pain with active ROM during Details: in extension and in flexion, knee ligament exam normal Details: anterior drawer test normal, posterior drawer test normal, valgus stress test normal and Zoë?s test normal, knee ligament exam abnormal Details: varus stress test normal (painful medial ), Willard's Test Details: positive medially and other (Open wound anterior tibial tubercle, proximal improved And now healed without undermining. Distal with eschar that was removed. wound dimensions per Wound Clinic note. distal wound 7 x 5 mm x 1 mm depth. 100% granulation tissue. no erythema. No drainage. ) and foot Details: normal capillary refill, toes with normal ROM, vascular exam Details: dorsalis pedis pulse present and motor-sensory exam Details: light-touch normal; no tenderness; no edema <Vinicius Macedo MD - Last Filed: 12/04/24 08:59> Assessment and Plan Assessment and plan (1) Prepatellar bursitis, right knee: Code(s): M70.41 - Prepatellar bursitis, right knee <DIEUDONNE Aguirre - Last Filed: 12/04/24 08:40> Status: Acute <DIEUDONNE Aguirre - Last Filed: 12/04/24 08:40> Assessment and Plan: Right prepatellar bursa wound. Progressing well. Noted improvement in wound dimensions and healing. undermining has now completely filled in. No drainage. May stop appointment. Continue dressing changes May wash and dry wound. Follow up in 1 week. <Vinicius Macedo MD - Last Filed: 12/04/24 08:59>
--- NOTE | 2024-12-11 10:38 | PM.IMHP ---
H&P: HPI History of Present Illness Date/Time: 12/11/24 8:38 Chief Complaint: Right tibial tubercle bursa wound Narrative: Follow up [facility] for right knee bursitis with skin necrosis. No new concerns. Significant improvement s/p graft 2 and 1 month ago. Using daily dressings. [facility] Past Medical History Medical History Ulcer of right knee Prepatellar bursitis, right knee Cellulitis of right leg Effusion of bursa of right knee Right otitis media BMI 31.0-31.9,adult Bronchitis Elevated ALT measurement Elevated hemoglobin A1c Elevated fasting glucose Vitamin D deficiency Cough Snoring Screening for hyperlipidemia History of fatty infiltration of liver Screening for diabetes mellitus Fatigue Umbilical hernia Encounter for screening for malignant neoplasm of prostate Exposure to COVID-19 virus Surgical History Surgical History Hx of appendectomy Family History Family History Sibling Hypertension Diabetes mellitus Mother Family history of heart disease in male family member before age 55 Father Carcinoma of colon , Onset Age: 82 covid-19 Social History Social History Smoking status: Never smoker Second hand tobacco smoke exposure: Yes Alcohol intake: never Substance use: never Substance use type: does not use Lack of Transportation: No Lack of Food: Never True Current Housing: I Have Housing Concerned About Future Housing: No Difficulty Paying Gas/Electric Bills: No Difficulty Paying for Meds: No Currently Unemployed: No Education: High School Diploma/GED Difficulty w/ Childcare or Family Care: No Living arrangements: with family Occupation/Education: occupation 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 Gender identity (if verbalized by the patient): Male Meds Home Medications and Allergies Home Medications ?Medication ?Instructions ?Recorded ?Confirmed ?Type metoprolol succinate 50 mg 50 mg PO DAILY #90 tabs 11/23/23 07/10/24 Rx tablet,extended release 24 hr cetirizine 10 mg capsule (Zyrtec) 10 mg PO DAILY PRN allergies 02/18/24 07/10/24 History cholecalciferol (vitamin D3) 125 125 mcg PO DAILY #30 tabs 06/18/24 07/10/24 Rx mcg (5,000 unit) tablet lisinopril 5 mg tablet 5 mg PO DAILY #90 tabs 06/18/24 07/10/24 Rx chlorhexidine gluconate 4 % 1 applic topical ONCE #236 mL 06/26/24 07/10/24 Rx topical liquid (Hibiclens) Allergies Allergy/AdvReac Type Severity Reaction Status Date / Time No Known Allergies Allergy Verified 07/10/24 09:33 Exam Extrem: Right upper extremity: normal to inspection Left upper extremity: normal to inspection Right lower extremity: hip/thigh Details: normal ROM; no tenderness, knee Details: abnormal to inspection, tenderness (anterior and medial joint line ) Location: of the medial joint line (moderate ) and of the pre-patellar area (moderate ), swelling (peripatellar and medial joint ), abnormal ROM (active range of motion -10 degrees extension, 110 degrees flexion) Details: pain with active ROM during Details: in extension and in flexion, knee ligament exam normal Details: anterior drawer test normal, posterior drawer test normal, valgus stress test normal and Zoë?s test normal, knee ligament exam abnormal Details: varus stress test normal (painful medial ), Willard's Test Details: positive medially and other (Open wound anterior tibial tubercle, proximal improved And now healed without undermining. Distal with eschar that was removed. wound dimensions per Wound Clinic note. distal wound 7 x 5 mm x 1 mm depth. 100% granulation tissue. no erythema. No drainage. ) and foot Details: normal capillary refill, toes with normal ROM, vascular exam Details: dorsalis pedis pulse present and motor-sensory exam Details: light-touch normal; no tenderness; no edema Assessment and Plan Assessment and plan (1) Prepatellar bursitis, right knee: Code(s): M70.41 - Prepatellar bursitis, right knee Status: Acute Assessment and Plan: Right prepatellar bursa wound. Undermining has now completely filled in. No drainage. minimal change in overall wound dimensions compared to prior. Will restart gentamicin ointment. Continue dressing changes May wash and dry wound. Follow up in 1 week.
--- NOTE | 2024-12-25 09:29 | PM.IMHP ---
H&P: HPI History of Present Illness Date/Time: 12/25/24 09:29 Chief Complaint: Right tibial tubercle bursa wound Narrative: Follow up [facility] for right knee bursitis with skin necrosis. No new concerns. Significant improvement s/p graft 2 and 1 month ago. Using daily dressings. Review of Systems Review of Systems: All systems reviewed & are unremarkable except as noted in HPI and below Constitutional: Constitutional: Denies fever(s) Eyes: Eyes: Denies blurry vision ENT: Reports Normal hearing present Cardiovascular: Cardiovascular: Denies chest pain and Denies dyspnea Respiratory: Respiratory: Denies dyspnea and Denies wheezing Gastrointestinal: Gastrointestinal: Denies abdominal pain Genitourinary: Genitourinary: Denies urinary urgency Musculoskeletal: Musculoskeletal: Reports as per HPI and Denies numbness Integumentary/Breasts: Skin/Breast: Denies changing lesions and Denies sores Neurologic: Reports Normal hearing present, Denies behavioral changes, Denies confusion, Denies numbness and Denies convulsions Psychiatric: Psychiatric: Denies behavioral changes, Denies confusion and Denies hallucinations Endocrine: Endocrine: Denies heat intolerance Hematologic/Lymphatic: Hematologic/Lymphatic: Denies easy bleeding Allergic/Immunologic: Allergic/Immunologic: Denies wheezing PMFSH Past Medical History Medical History Ulcer of right knee Prepatellar bursitis, right knee Cellulitis of right leg Effusion of bursa of right knee Right otitis media BMI 31.0-31.9,adult Bronchitis Elevated ALT measurement Elevated hemoglobin A1c Elevated fasting glucose Vitamin D deficiency Cough Snoring Screening for hyperlipidemia History of fatty infiltration of liver Screening for diabetes mellitus Fatigue Umbilical hernia Encounter for screening for malignant neoplasm of prostate Exposure to COVID-19 virus Surgical History Surgical History Hx of appendectomy Family History Family History Sibling Hypertension Diabetes mellitus Mother Family history of heart disease in male family member before age 55 Father Carcinoma of colon , Onset Age: 82 covid-19 Social History Social History Smoking status: Never smoker Second hand tobacco smoke exposure: Yes Alcohol intake: never Substance use: never Substance use type: does not use Lack of Transportation: No Lack of Food: Never True Current Housing: I Have Housing Concerned About Future Housing: No Difficulty Paying Gas/Electric Bills: No Difficulty Paying for Meds: No Currently Unemployed: No Education: High School Diploma/GED Difficulty w/ Childcare or Family Care: No Living arrangements: with family Occupation/Education: occupation 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 Gender identity (if verbalized by the patient): Male Meds Home Medications and Allergies Home Medications ?Medication ?Instructions ?Recorded ?Confirmed ?Type cetirizine 10 mg capsule (Zyrtec) 10 mg PO DAILY PRN allergies 02/18/24 07/10/24 History cholecalciferol (vitamin D3) 125 125 mcg PO DAILY #30 tabs 06/18/24 07/10/24 Rx mcg (5,000 unit) tablet chlorhexidine gluconate 4 % 1 applic topical ONCE #236 mL 06/26/24 07/10/24 Rx topical liquid (Hibiclens) lisinopril 5 mg tablet 5 mg PO DAILY #90 tabs 12/16/24 Rx metoprolol succinate 50 mg 50 mg PO DAILY #90 tabs 12/16/24 Rx tablet,extended release 24 hr Allergies Allergy/AdvReac Type Severity Reaction Status Date / Time No Known Allergies Allergy Verified 07/10/24 09:33 Exam Extrem: Right upper extremity: normal to inspection Left upper extremity: normal to inspection Right lower extremity: hip/thigh Details: normal ROM; no tenderness, knee Details: abnormal to inspection, tenderness (anterior and medial joint line ) Location: of the medial joint line (moderate ) and of the pre-patellar area (moderate ), swelling (peripatellar and medial joint ), abnormal ROM (active range of motion -10 degrees extension, 110 degrees flexion) Details: pain with active ROM during Details: in extension and in flexion, knee ligament exam normal Details: anterior drawer test normal, posterior drawer test normal, valgus stress test normal and Zoë?s test normal, knee ligament exam abnormal Details: varus stress test normal (painful medial ), Willard's Test Details: positive medially and other (Open wound anterior tibial tubercle, proximal improved And now healed without undermining. Distal with eschar that was removed. wound dimensions per Wound Clinic note. distal wound 5 x 5 mm x 1 mm depth. 100% granulation tissue. no erythema. No drainage. ) and foot Details: normal capillary refill, toes with normal ROM, vascular exam Details: dorsalis pedis pulse present and motor-sensory exam Details: light-touch normal; no tenderness; no edema Assessment and Plan Assessment and plan (1) Prepatellar bursitis, right knee: Code(s): M70.41 - Prepatellar bursitis, right knee Status: Acute Assessment and Plan: Right prepatellar bursa wound. Undermining has now completely filled in. No drainage. Some improvement in overall wound dimensions compared to prior. Will continue gentamicin ointment. Continue dressing changes. May wash and dry wound. Follow up in 1 week.
== END 2025-01-07 23:59 | disposition home or self-care (01) ==
LOC: ANHWOC 07:08
PROVIDERS: PCP Family Medicine; Visit Provider Nurse Practitioner Family
DX: L97.813 Non-pressure chronic ulcer of other part of right lower leg with necrosis of muscle (principal); M25.461 Effusion, right knee; M70.41 Prepatellar bursitis, right knee; Z48.00 Encounter for change or removal of nonsurgical wound dressing
CPT/HCPCS: 99213; 99214; A9270; G0463

== ENCOUNTER 2025-01-22 07:07 | Outpatient (RCR) | payer BC, SELFPAY ==
[2025-01-08 00:05] VITALS: BMI 33.7
--- NOTE | 2025-01-08 09:02 | P.HP_ITS ---
H&P: HPI History of Present Illness Date/Time: 01/08/25 09:02 Chief Complaint: Right tibial tubercle bursa wound Narrative: Follow up [facility] for right knee bursitis with skin necrosis. No new concerns. Significant improvement s/p graft 2 months ago. Using daily dressings. Review of Systems Review of Systems: All systems reviewed & are unremarkable except as noted in HPI and below Constitutional: Constitutional: Denies fever(s) Eyes: Eyes: Denies blurry vision ENT: Reports Normal hearing present Cardiovascular: Cardiovascular: Denies chest pain and Denies dyspnea Respiratory: Respiratory: Denies dyspnea and Denies wheezing Gastrointestinal: Gastrointestinal: Denies abdominal pain Genitourinary: Genitourinary: Denies urinary urgency Musculoskeletal: Musculoskeletal: Reports as per HPI and Denies numbness Integumentary/Breasts: Skin/Breast: Denies changing lesions and Denies sores Neurologic: Reports Normal hearing present, Denies behavioral changes, Denies confusion, Denies numbness and Denies convulsions Psychiatric: Psychiatric: Denies behavioral changes, Denies confusion and Denies hallucinations Endocrine: Endocrine: Denies heat intolerance Hematologic/Lymphatic: Hematologic/Lymphatic: Denies easy bleeding Allergic/Immunologic: Allergic/Immunologic: Denies wheezing PMFSH Past Medical History Medical History Ulcer of right knee Prepatellar bursitis, right knee Cellulitis of right leg Effusion of bursa of right knee Right otitis media BMI 31.0-31.9,adult Bronchitis Elevated ALT measurement Elevated hemoglobin A1c Elevated fasting glucose Vitamin D deficiency Cough Snoring Screening for hyperlipidemia History of fatty infiltration of liver Screening for diabetes mellitus Fatigue Umbilical hernia Encounter for screening for malignant neoplasm of prostate Exposure to COVID-19 virus Surgical History Surgical History Hx of appendectomy Family History Family History Sibling Hypertension Diabetes mellitus Mother Family history of heart disease in male family member before age 55 Father Carcinoma of colon , Onset Age: 82 covid-19 Social History Social History Smoking status: Never smoker Second hand tobacco smoke exposure: Yes Alcohol intake: never Substance use: never Substance use type: does not use Lack of Transportation: No Lack of Food: Never True Current Housing: I Have Housing Concerned About Future Housing: No Difficulty Paying Gas/Electric Bills: No Difficulty Paying for Meds: No Currently Unemployed: No Education: High School Diploma/GED Difficulty w/ Childcare or Family Care: No Living arrangements: with family Occupation/Education: occupation 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 Gender identity (if verbalized by the patient): Male Meds Home Medications and Allergies Home Medications ?Medication ?Instructions ?Recorded ?Confirmed ?Type cetirizine 10 mg capsule (Zyrtec) 10 mg PO DAILY PRN allergies 02/18/24 07/10/24 History cholecalciferol (vitamin D3) 125 125 mcg PO DAILY #30 tabs 06/18/24 07/10/24 Rx mcg (5,000 unit) tablet chlorhexidine gluconate 4 % 1 applic topical ONCE #236 mL 06/26/24 07/10/24 Rx topical liquid (Hibiclens) lisinopril 5 mg tablet 5 mg PO DAILY #90 tabs 12/16/24 Rx metoprolol succinate 50 mg 50 mg PO DAILY #90 tabs 12/16/24 Rx tablet,extended release 24 hr Allergies Allergy/AdvReac Type Severity Reaction Status Date / Time No Known Allergies Allergy Verified 07/10/24 09:33 Exam Extrem: Right upper extremity: normal to inspection Left upper extremity: normal to inspection Right lower extremity: hip/thigh Details: normal ROM; no tenderness, knee Details: abnormal to inspection, tenderness (anterior and medial joint line ) Location: of the medial joint line (moderate ) and of the pre-patellar area (moderate ), swelling (peripatellar and medial joint ), abnormal ROM (active range of motion -10 degrees extension, 110 degrees flexion) Details: pain with active ROM during Details: in extension and in flexion, knee ligament exam normal Details: anterior drawer test normal, posterior drawer test normal, valgus stress test normal and Zoë?s test normal, knee ligament exam abnormal Details: varus stress test normal (painful medial ), Willard's Test Details: positive medially and other (Open wound anterior tibial tubercle, proximal improved And now healed without undermining. Distal with eschar that was removed. wound dimensions per Wound Clinic note. distal wound 5 x 5 mm x 1 mm depth. 100% granulation tissue. no erythema. No drainage. ) and foot Details: normal capillary refill, toes with normal ROM, vascular exam Details: dorsalis pedis pulse present and motor-sensory exam Details: light-touch normal; no tenderness; no edema Assessment and Plan Assessment and plan (1) Prepatellar bursitis, right knee: Code(s): M70.41 - Prepatellar bursitis, right knee Status: Acute Assessment and Plan: Right prepatellar bursa wound. Undermining has filled in. No drainage. Improvement in overall wound dimensions compared to prior. Leave open to air. May wash and dry wound. Follow up in 2 weeks.
--- NOTE | 2025-01-22 10:09 | P.HP_ITS ---
H&P: HPI History of Present Illness Date/Time: 01/22/25 10:09 Chief Complaint: Right tibial tubercle bursa wound Narrative: Follow up [facility] for right knee bursitis with skin necrosis. Original bursitis which started 1 year ago in January 2024. Treated conservatively until April 2024 with aspiration followed by repeat aspiration. Cultures were always negative for bacteria growth. He has been using foam padding to protect the area. No new concerns. Significant improvement s/p graft 3 months ago. Reports no drainage. Review of Systems Review of Systems: All systems reviewed & are unremarkable except as noted in HPI and below Constitutional: Constitutional: Denies fever(s) Eyes: Eyes: Denies blurry vision ENT: Reports Normal hearing present Cardiovascular: Cardiovascular: Denies chest pain and Denies dyspnea Respiratory: Respiratory: Denies dyspnea and Denies wheezing Gastrointestinal: Gastrointestinal: Denies abdominal pain Genitourinary: Genitourinary: Denies urinary urgency Musculoskeletal: Musculoskeletal: Reports as per HPI and Denies numbness Integumentary/Breasts: Skin/Breast: Denies changing lesions and Denies sores Neurologic: Reports Normal hearing present, Denies behavioral changes, Denies confusion, Denies numbness and Denies convulsions Psychiatric: Psychiatric: Denies behavioral changes, Denies confusion and Denies hallucinations Endocrine: Endocrine: Denies heat intolerance Hematologic/Lymphatic: Hematologic/Lymphatic: Denies easy bleeding Allergic/Immunologic: Allergic/Immunologic: Denies wheezing PMFSH Past Medical History Medical History Ulcer of right knee Prepatellar bursitis, right knee Cellulitis of right leg Effusion of bursa of right knee Right otitis media BMI 31.0-31.9,adult Bronchitis Elevated ALT measurement Elevated hemoglobin A1c Elevated fasting glucose Vitamin D deficiency Cough Snoring Screening for hyperlipidemia History of fatty infiltration of liver Screening for diabetes mellitus Fatigue Umbilical hernia Encounter for screening for malignant neoplasm of prostate Exposure to COVID-19 virus Surgical History Surgical History Hx of appendectomy Family History Family History Sibling Hypertension Diabetes mellitus Mother Family history of heart disease in male family member before age 55 Father Carcinoma of colon , Onset Age: 82 covid-19 Social History Social History Smoking status: Never smoker Second hand tobacco smoke exposure: Yes Alcohol intake: never Substance use: never Substance use type: does not use Lack of Transportation: No Lack of Food: Never True Current Housing: I Have Housing Concerned About Future Housing: No Difficulty Paying Gas/Electric Bills: No Difficulty Paying for Meds: No Currently Unemployed: No Education: High School Diploma/GED Difficulty w/ Childcare or Family Care: No Living arrangements: with family Occupation/Education: occupation 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 Gender identity (if verbalized by the patient): Male Meds Home Medications and Allergies Home Medications ?Medication ?Instructions ?Recorded ?Confirmed ?Type cetirizine 10 mg capsule (Zyrtec) 10 mg PO DAILY PRN allergies 02/18/24 01/08/25 History cholecalciferol (vitamin D3) 125 125 mcg PO DAILY #30 tabs 06/18/24 01/08/25 Rx mcg (5,000 unit) tablet chlorhexidine gluconate 4 % 1 applic topical ONCE #236 mL 06/26/24 01/08/25 Rx topical liquid (Hibiclens) lisinopril 5 mg tablet 5 mg PO DAILY #90 tabs 12/16/24 01/08/25 Rx metoprolol succinate 50 mg 50 mg PO DAILY #90 tabs 12/16/24 01/08/25 Rx tablet,extended release 24 hr Allergies Allergy/AdvReac Type Severity Reaction Status Date / Time No Known Allergies Allergy Verified 07/10/24 09:33 Exam Extrem: Right upper extremity: normal to inspection Left upper extremity: normal to inspection Right lower extremity: hip/thigh Details: normal ROM; no tenderness, knee Details: normal to inspection, tenderness (anterior) Location: of the pre-patellar area (moderate ), swelling Location: of the tibial tuberosity ( Improved), normal ROM, knee ligament exam normal Details: anterior drawer test normal, posterior drawer test normal, valgus stress test normal, varus stress test normal and Zoë?s test normal, Willard's Test Details: negative medially and laterally and other ( Tibial tubercle ulcer healed over with no openings. No erythema. No drainage. ) and foot Details: normal capillary refill, toes with normal ROM, vascular exam Details: dorsalis pedis pulse present and motor-sensory exam Details: light-touch normal; no tenderness; no edema Assessment and Plan Assessment and plan (1) Prepatellar bursitis, right knee: Code(s): M70.41 - Prepatellar bursitis, right knee Status: Acute Assessment and Plan: follow-up for Right prepatellar bursa wound. Undermining has filled in. No drainage. Improvement in overall wound dimensions, now fully healed. Leave open to air. discussed foam padding to protect the area with certain activity and clothing. Recommend refrain from kneeling. Notify office if any changes or concerns.
== END 2025-03-29 08:56 | disposition home or self-care (01) ==
LOC: ANHWOC 07:07
PROVIDERS: PCP Family Medicine; Visit Provider Nurse Practitioner Family
DX: Z48.00 Encounter for change or removal of nonsurgical wound dressing (principal); L97.813 Non-pressure chronic ulcer of other part of right lower leg with necrosis of muscle; M25.461 Effusion, right knee
CPT/HCPCS: 99212; 99213; G0463